=== PATIENT | female | born 1985 | race Caucasian/White ===

== ENCOUNTER 2021-02-11 08:40 | Outpatient (REF) | payer OTHER, SELFPAY ==
[2021-02-11 09:13] LABS: COVID-19 Test Negative (Negative)
== END 2021-02-11 08:41 | disposition home or self-care (01) ==
LOC: HO.LAB 08:40
PROVIDERS: Visit Provider Internal Medicine
DX: Z20.822 Contact with and (suspected) exposure to COVID-19 (principal)
CPT/HCPCS: 36415; 87635; C9803

== ENCOUNTER 2021-07-08 08:34 | Outpatient (REF) | payer OTHER, SELFPAY ==
[2021-07-08 09:31] LABS: COVID-19 Test Negative (Negative)
== END 2021-07-08 08:35 | disposition home or self-care (01) ==
LOC: HO.LAB 08:34
PROVIDERS: PCP Internal Medicine; Visit Provider Internal Medicine
DX: Z20.822 Contact with and (suspected) exposure to COVID-19 (principal)
CPT/HCPCS: 36415; 87635; C9803

== ENCOUNTER 2021-12-29 14:10 | Outpatient (REF) | payer OTHER, SELFPAY ==
[2021-12-29 17:57] LABS: CT PCR NOT DETECTED (Not Detect.); NG PCR NOT DETECTED (Not Detect.)
[2022-01-01 09:52] LABS: HPV mRNA E6/E7 rflx Not Detected (Not Detected)
== END 2021-12-29 14:11 | disposition home or self-care (01) ==
LOC: HO.LAB 14:10
PROVIDERS: PCP Internal Medicine; Visit Provider Advanced Practice Midwife
DX: Z01.419 Encounter for gynecological examination (general) (routine) without abnormal findings (principal); Z11.51 Encounter for screening for human papillomavirus (HPV); Z20.2 Contact with and (suspected) exposure to infections with a predominantly sexual mode of transmission
CPT/HCPCS: 87491; 87591; 87624; 88142

== ENCOUNTER 2022-09-19 11:54 | Outpatient (REF) | payer OTHER, SELFPAY ==
[2022-09-19 12:38] LABS: Influenza A PCR NEGATIVE (Negative); Influenza B PCR NEGATIVE (Negative); Resp Syncy Virus RNA Qual PCR POSITIVE (Negative); SARS COV2 PCR INHOUSE NEGATIVE (Negative)
== END 2022-09-19 11:55 | disposition home or self-care (01) ==
LOC: HO.LNP 11:54
PROVIDERS: Visit Provider Internal Medicine
DX: Z20.822 Contact with and (suspected) exposure to COVID-19 (principal); R43.9 Unspecified disturbances of smell and taste
CPT/HCPCS: 0241U

== ENCOUNTER 2022-11-26 09:06 | Outpatient (REF) | payer OTHER, SELFPAY ==
[2022-11-26 09:12] LABS: MANUAL DIFF FLAG NO
[2022-11-26 10:08] LABS: Basophils Absolute Auto 0.1 X10*3/uL (0.0-0.2); Basophils Percent Auto 0.7 % (0-2); Eosinophils Absolute Auto 0.4 X10*3/uL (0.0-0.4); Eosinophils Percent Auto 4.4 % (0-4); Hematocrit 40.8 % (37.0-47.0); Hemoglobin 13.5 g/dl (12.0-16.0); Imm Gran Abs Auto 0.02 X10*3/uL (0.00-0.03); Imm Gran Pct Auto 0.2 % (0.0-0.4); Lymphocytes Absolute Auto 2.7 X10*3/uL (1.2-4.9); Lymphocytes Percent Auto 30.4 % (20-40); Mean Corpuscular HGB Conc 33.1 g/dl (31.0-35.0); Mean Corpuscular Volume 81.6 fL (80.0-98.0); Mean Platelet Volume 9.9 fL (9.4-12.3); Monocytes Absolute Auto 0.5 X10*3/uL (0.1-1.2); Monocytes Percent Auto 5.9 % (2-11); Neutrophils Absolute Auto 5.2 x10*3/uL (2.0-8.3); Neutrophils Percent Auto 58.4 % (45-73); Platelet Count 409 X10*3/uL (160-400); White Blood Count 8.9 X10*3/uL (4.8-10.8)
[2022-11-26 10:13] LABS: Estimated Average Glucose 108 mg/dL; Hemoglobin A1c % 5.4 %
[2022-11-26 12:31] LABS: Alanine Aminotransferase 27 U/L (0-31); Albumin Level 4.6 g/dL (3.5-5.0); Alkaline Phosphatase 68 U/L (39-117); Anion Gap 16 (12-20); Aspartate Amino Transferase 18 U/L (5-31); Bilirubin Total 0.7 mg/dL (0.0-1.0); Blood Urea Nitrogen 14 mg/dL (9-16); Calcium 10.1 mg/dL (8.4-10.2); Carbon Dioxide 24 mmol/L (22-29); Chloride 106 mmol/L (96-108); Cholesterol 161 mg/dL; Estimated Glomerular Filt Rate > 60; Glucose Random 108 mg/dL (60-115); HDL Cholesterol 31 mg/dL; LDL Cholesterol Calculated 96 mg/dl; Potassium 4.4 mmol/L (3.3-5.1); Sodium 142 mmol/L (135-145); Triglycerides 170 mg/dL
[2022-11-26 13:04] LABS: Folate 8.1 ng/mL (> or = 4.0); Free T4 (Free Thyroxine) 0.92 ng/dL (0.71-1.85); Vitamin B12 417 pg/mL (200-900); Vitamin D 25-OH Total 22.3 ng/mL (>30)
== END 2022-11-26 09:07 | disposition home or self-care (01) ==
LOC: HO.LAB 09:06
PROVIDERS: PCP Internal Medicine; Visit Provider Internal Medicine
DX: E78.00 Pure hypercholesterolemia, unspecified (principal); E66.3 Overweight
CPT/HCPCS: 36415; 80053; 80061; 82306; 82607; 82746; 83036; 84439; 84443; 85025

== ENCOUNTER 2022-12-06 08:59 | Outpatient (REF) | payer OTHER, SELFPAY | END 2022-12-06 09:00 | disposition home or self-care (01) | LOC: HO.XRAY 08:59 | PROVIDERS: Absent Provider Internal Medicine; PCP Internal Medicine; Visit Provider Surgery | DX: Z13.89 Encounter for screening for other disorder (principal) ==

== ENCOUNTER 2022-12-12 09:54 | Outpatient (REF) | payer OTHER, SELFPAY ==
--- NOTE | ~2022-12-12 | XR_ITS ---
EXAMINATION: XR LUMBOSACRAL SPINE CLINICAL INFORMATION: Low back pain. COMPARISON: None TECHNIQUE: Three views of the lumbosacral spine. FINDINGS: The vertebral bodies and posterior elements are normal. The disc spaces are preserved and the vertebral alignment is normal. The paraspinal soft tissues are normal. XR/XR lumbar spine 2-3V IMPRESSION: Unremarkable examination.
--- NOTE | ~2022-12-12 | XR_ITS ---
EXAMINATION: XR KNEE AP STANDING CLINICAL INFORMATION: Pain in the right knee. COMPARISON: Prior radiographs of the left knee 05/23/2015. TECHNIQUE: AP bilateral standing view of the knees was obtained. FINDINGS: Small well-corticated 0.5 cm osseous fragment adjacent to the head of the left fibula. Mild joint space narrowing of the medial compartment in both knees. No significant bony productive changes. No erosions or chondrocalcinosis. No abnormal soft tissue calcifications. XR/XR knee standing BI IMPRESSION: 1. Nonspecific osseous fragment adjacent to the left fibular head potentially related with sequela of an avulsion injury, correlate with point tenderness. This is new compared to 2015. 2. Mild joint space narrowing of the medial prominence of both knees.
--- NOTE | ~2022-12-12 | US_ITS ---
EXAMINATION: US THYROID CLINICAL INFORMATION: Obesity, postprocedural state. COMPARISON: None TECHNIQUE: Linear transducer rosario-scale and color Doppler examination with attention to the region of the thyroid. FINDINGS: SIZE: Measurements of the thyroid lobes and nodules are given in sagittal, anteroposterior and transverse dimensions respectively. Right Thyroid Lobe: 5.3 x 1.6 x 1.4 cm, volume 6.2 mL. Parenchyma: The gland echotexture is homogeneous. Thyroid vascularity is normal. Left Thyroid Lobe: 5.0 x 1.2 x 1.4 cm, volume 4.4 mL. Parenchyma: The gland echotexture is homogeneous. Thyroid vascularity is normal. Isthmus: 0.4 cm in maximum AP dimension. No focal thyroid nodule is seen. Tiny colloid cysts are incidentally noted. NODES: No lymphadenopathy is seen in the tissue surrounding the thyroid gland. US/US thyroid IMPRESSION: Unremarkable examination. ACR TI-RADS RECOMMENDATION REFERENCE: Ultrasound-guided fine-needle aspiration, followup ultrasound, no further follow up. * TR1 (0 point) and TR2 (2 points): No FNA or follow up. * TR3 (3 points): FNA if more than or equal to 2.5 cm in maximum dimension, followup ultrasound in 1, 3 and 5 years if 1.5 to 2.4 cm in maximum dimension. * TR4 (4-6 points): FNA if more than or equal to 1.5 cm in maximum dimension, followup ultrasound in 1, 2, 3 and 5 years if 1 to 1.4 cm in maximum dimension. * TR5 (more than or equal to 7 points): FNA if more than or equal to 1 cm in maximum dimension, followup ultrasound every year for 5 years if 0.5 to 0.9 cm in maximum dimension. * TR3, TR4 or TR5 nodules that are below the size threshold for followup receive no follow up.
== END 2022-12-12 09:55 | disposition home or self-care (01) ==
LOC: HO.US 09:54
PROVIDERS: PCP Internal Medicine; Visit Provider Internal Medicine
DX: M54.50 Low back pain, unspecified (principal); M25.561 Pain in right knee; M25.562 Pain in left knee; Z98.890 Other specified postprocedural states
CPT/HCPCS: 72100; 73565; 76536

== ENCOUNTER 2022-12-23 12:43 | Outpatient (REF) | payer OTHER, SELFPAY | END 2022-12-23 12:44 | disposition home or self-care (01) | LOC: HO.HOSX 12:43 | PROVIDERS: Visit Provider Physician Assistant | DX: Z13.89 Encounter for screening for other disorder (principal) ==

== ENCOUNTER 2022-12-28 12:26 | Outpatient (REF) | payer OTHER, SELFPAY ==
--- NOTE | ~2022-12-28 | XR_ITS ---
EXAMINATION: XR CHEST CLINICAL INFORMATION: Cough COMPARISON: None TECHNIQUE: 2 views of the chest were obtained. FINDINGS: No significant abnormality is noted involving the heart, lungs, mediastinum, bony thorax or soft tissues. XR/XR chest 2V IMPRESSION: Unremarkable examination.
[2022-12-28 15:05] LABS: Influenza A PCR NEGATIVE (Negative); Influenza B PCR NEGATIVE (Negative); Resp Syncy Virus RNA Qual PCR NEGATIVE (Negative); SARS COV2 PCR INHOUSE NEGATIVE (Negative)
== END 2022-12-28 12:27 | disposition home or self-care (01) ==
LOC: HO.HMGCX 12:26
PROVIDERS: PCP Internal Medicine; Visit Provider Nurse Practitioner Family
DX: Z20.822 Contact with and (suspected) exposure to COVID-19 (principal); R05.9 Cough, unspecified
CPT/HCPCS: 0241U; 71046

== ENCOUNTER 2023-01-04 15:01 | Outpatient (REF) | payer OTHER, SELFPAY ==
--- NOTE | ~2023-01-04 | XR_ITS ---
EXAMINATION: XR CHEST CLINICAL INFORMATION: Bronchitis. COMPARISON: None available. TECHNIQUE: 2 views of the chest were obtained. FINDINGS: No significant abnormality is noted involving the heart, lungs, mediastinum, bony thorax or soft tissues. XR/XR chest 2V IMPRESSION: Unremarkable chest examination.
== END 2023-01-04 15:02 | disposition home or self-care (01) ==
LOC: HO.XRAY 15:01
PROVIDERS: PCP Internal Medicine; Visit Provider Physician Assistant
DX: J40 Bronchitis, not specified as acute or chronic (principal)
CPT/HCPCS: 71046

== ENCOUNTER 2023-01-14 13:07 | Outpatient (REF) | payer OTHER, SELFPAY ==
--- NOTE | ~2023-01-14 | XR_ITS ---
EXAMINATION: XR LUMBOSACRAL SPINE WITH OBLIQUES CLINICAL INFORMATION: Lifting injury. COMPARISON: Lumbar spine radiographs dated 12/12/2022. TECHNIQUE: AP, both oblique, and lateral views of the lumbar spine. Lateral view of the lumbosacral junction. FINDINGS: The vertebral bodies and posterior elements are normal. The disc spaces are preserved and the vertebral alignment is normal. The paraspinal soft tissues are normal. Surgical clips overlie the right upper quadrant. XR/XR lumbar spine 4V min IMPRESSION: Unremarkable lumbar spine.
== END 2023-01-14 13:08 | disposition home or self-care (01) ==
LOC: HO.HMGCX 13:07
PROVIDERS: PCP Internal Medicine; Visit Provider Physician Assistant
DX: M54.50 Low back pain, unspecified (principal); M79.605 Pain in left leg
CPT/HCPCS: 72110

== ENCOUNTER 2023-03-15 09:26 | Outpatient (REF) | payer OTHER, SELFPAY ==
[2023-03-15 14:44] LABS: CT PCR NOT DETECTED (Not Detect.); NG PCR NOT DETECTED (Not Detect.)
[2023-03-16 09:01] LABS: BV Int Neg Control Negative (Negative); BV Int Pos Control Positive (Positive)
== END 2023-03-15 09:27 | disposition home or self-care (01) ==
LOC: HO.LAB 09:26
PROVIDERS: PCP Internal Medicine; Visit Provider Advanced Practice Midwife
DX: N94.6 Dysmenorrhea, unspecified (principal); Z20.2 Contact with and (suspected) exposure to infections with a predominantly sexual mode of transmission
CPT/HCPCS: 0353U; 87480; 87510; 87660

== ENCOUNTER 2023-03-15 10:05 | Outpatient (REF) | payer OTHER, SELFPAY ==
[2023-03-17 02:29] LABS: HPV mRNA E6/E7 rflx Not Detected (Not Detected)
== END 2023-03-15 10:06 | disposition home or self-care (01) ==
LOC: HO.LNP 10:05
PROVIDERS: Visit Provider Advanced Practice Midwife
DX: Z01.419 Encounter for gynecological examination (general) (routine) without abnormal findings (principal); Z11.51 Encounter for screening for human papillomavirus (HPV)
CPT/HCPCS: 87624; 88142

== ENCOUNTER 2023-04-03 07:38 | Outpatient (REF) | payer OTHER, SELFPAY ==
--- NOTE | ~2023-04-03 | XR_ITS ---
EXAMINATION: Bilateral knee x-ray CLINICAL INFORMATION: Pain COMPARISON: None TECHNIQUE: Lateral and sunrise view of each knee FINDINGS: Right: Bone alignment is normal. No fracture or dislocation. Small osteophytes patellofemoral joint. Small osteophyte at the patellar tendon insertion. Question slight lateral tilt of the patella on the sunrise view. No joint effusion. Left: Bone alignment is normal. No fracture or dislocation. Small osteophytes at the patellofemoral joint. Slight lateral tilt of patella. Osteophytes at the quadriceps tendon and patellar tendon insertions. XR/XR knee RT 2V IMPRESSION: Mild degenerative changes.
--- NOTE | ~2023-04-03 | XR_ITS ---
EXAMINATION: Bilateral knee x-ray CLINICAL INFORMATION: Pain COMPARISON: None TECHNIQUE: Lateral and sunrise view of each knee FINDINGS: Right: Bone alignment is normal. No fracture or dislocation. Small osteophytes patellofemoral joint. Small osteophyte at the patellar tendon insertion. Question slight lateral tilt of the patella on the sunrise view. No joint effusion. Left: Bone alignment is normal. No fracture or dislocation. Small osteophytes at the patellofemoral joint. Slight lateral tilt of patella. Osteophytes at the quadriceps tendon and patellar tendon insertions. XR/XR knee LT 2V IMPRESSION: Mild degenerative changes.
--- NOTE | ~2023-04-03 | XR_ITS ---
EXAMINATION: XR BILATERAL HIPS WITH AP PELVIS CLINICAL INFORMATION: Low back and pelvic pain COMPARISON: None available. TECHNIQUE: AP view of the pelvis and 2 views of each hip were obtained. FINDINGS: Bone alignment is normal. No fracture or dislocation. There is mild bilateral hip arthritis with small osteophytes. Bones of the pelvis are normal. Soft tissues are normal. XR/XR hip BI w PEL1V IMPRESSION: Mild bilateral hip osteoarthritis.
== END 2023-04-03 07:39 | disposition home or self-care (01) ==
LOC: HO.XRAY 07:38
PROVIDERS: Absent Provider Physician Assistant; PCP Internal Medicine; Visit Provider Internal Medicine
DX: M54.50 Low back pain, unspecified (principal); M25.561 Pain in right knee; M25.562 Pain in left knee
CPT/HCPCS: 73521; 73560

== ENCOUNTER 2023-10-02 11:44 | Outpatient (AMB) | payer BC, SELFPAY ==
--- NOTE | 2023-10-02 11:45 | AM.OFFVISNUR ---
Intake Intake Visit Reasons: Flu Shot Allergies No Known Drug Allergies Allergy (Unknown, Verified 03/22/23 13:47) NONE Office Procedures Flu Questionnaire Does the patient have a severe egg allergy?: No Does the patient have severe life threatening allergies?: No Does the patient have a fever or illness today?: No Has the patient ever had Guillain-Menard Syndrome?: No Has the patient ever had any past reaction to a flu shot?: No Immunizations flu vacc [id number] 6mos up(PF) 60 mcg(15 mcgx4)/0.5 mL IM syringe Performing Provider: Ravinder Murillo MD [facility] Administered by: Dipti Gonsalez RN on 10/02/23 11:50 Dose Route Admin Location Dispensed Lot Number Expiration Date NDC Sausage Tier 0.5 mL IM Left Deltoid 0.5 mL [id number] 04/21/24 93231-719-42 [employer] VIS Given Date VIS Provided VIS Publication Date 10/02/23 Single Vaccine 21 Eligibility Eligibility Date Funding Source Not [facility] Eligible 10/02/23 Private Coding Assessment & Plan Assessment & Plan Orders: Orders Influenza [id number] Immunization Today Z23 - Encounter for immunization
== END 2023-10-02 11:51 | disposition home or self-care (01) ==
PROVIDERS: PCP Internal Medicine; Visit Provider Internal Medicine
DX: Z23 Encounter for immunization (principal)
CPT/HCPCS: 90471; 90686

== ENCOUNTER 2023-11-03 11:32 | Outpatient (AMB) | payer BC, SELFPAY ==
[2023-11-03 11:34] VITALS: BP 110/72; PULSE 75; O2SAT 92; BMI 28.4
--- NOTE | 2023-11-03 11:34 | A.OFFPC_ITS ---
Vital Signs 11/03/23 11:34 Height 5 ft 1 in Weight 150 lb 8 oz BMI 28.4 BP 110/72 Blood Pressure Location Lt brachial Position Sitting Pulse 75 Pulse Source Pulse Oximeter Pulse Oximetry (%) 92 Oxygen Delivery Method Room Air Intake Visit Reasons: Abdominal pain/Concern Transport Truck Driver Required: No Crib Pad Maker: Not Required per policy Accompanied by: Self / Same As Patient Allergies No Known Drug Allergies Allergy (Unknown, Verified 11/03/23 11:35) NONE Medication List - Last Reconciled 11/03/23 by Ravinder Murillo MD metronidazole 500 mg PO BID 7 days valacyclovir (Valtrex) 500 mg PO BID zolpidem 5 mg PO BEDTIME PRN Tobacco use date assessed: 11/03/23 Dental Screening Dental Screen Date: 11/03/23 Did you have a dental visit in the last 12 months?: Yes Did you have a dental problem in the last 6 months where you did not have access to dental care?: No Was dental information given to patient?: Patient has dentist HPI Abdominal pain/Concern HPI Details 38-year-old overweight female with a his tory of bilateral knee pain constipation coming in for follow-up last seen in February 2023. Review of the notes had hip x-rays showing bilateral hip osteoarthritis and with the knee showing mild degenerative changes. Last blood work in November 2022 showing impaired glucose tolerance. 2 weeks ago epigastric pain- vomiting, diarrhea- feels tired and L side abdominal heavy. stil loo formed stool now and ot constipation, urination odor, no menstruation , tubes tied already. 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 concern on insomnia PFSH Medical History (Updated 11/03/23 @ 11:54 by Ravinder Murillo MD) Inflammation of sacroiliac joint Bronchitis Sinus infection Cough Mass of skin of back History of abnormal cervical Pap smear Surgical History History of thyroid surgery History of cholecystectomy Hx of tubal ligation H/O abdominoplasty Hx of section Family History Father TIA (transient ischemic attack) Bipolar 1 disorder Mental health disorder Multiple sclerosis Maternal Grandfather Heart attack Son Asperger's disorder Social History Housing: Apartment Alcohol intake: current Alcohol intake frequency: holidays/special occasions only Alcohol type: wine Patient Tobacco Use Status: Never used Tobacco e-Cigarette/Vaping Use: Never Used service: No Current occupational status: employed Current occupation: [employer] Sexual orientation: Straight/Heterosexual Gender identity: Female Cognitive needs: No Hearing needs: No Vision needs: Yes Questionnaire PHQ-9 Over the last 2 weeks, how often have you been bothered by any of the following problems? 1. Little interest or pleasure in doing things: more than half the days 2. Feeling down, depressed, or hopeless: more than half the days 3. Trouble falling or staying asleep, or sleeping too much: nearly every day 4. Feeling tired or having little energy: nearly every day 5. Poor appetite or overeating: not at all 6. Feeling bad about yourself - or that you are a failure or have let yourself or your family down: not at all 7. Trouble concentrating on things, such as reading the newspaper or watching television: more than half the days 8. Moving or speaking so slowly that other people could have noticed. Or the op posite - being so fidgety or restless that you have been moving around a lot more than usual: not at all 9. Thoughts that you would be better off or of hurting yourself in some way: not at all Total score: 12 Depression Screening Interpretation: Positive Depression Screening Done: Yes Source: Developed by Drs. Souleymane Rodrigues, Aiyana Sabillon, Jerry Reza and colleagues, with an educational omega from [employer]. Thrive Questionnaire Date Thrive assessed: 11/03/23 I am a: Patient What is your living situation today?: I have a steady place to live Within the past 12 months, did the food you bought not last and you didn't have the money to get more?: Never true Within the past 12 months, did you worry whether your food would run out before you got money to buy more?: Never true Do you have trouble paying for medicines?: No Do you have trouble getting transportation to medical appointments?: No Do you have trouble paying your heating and electricity bill?: No Do you have trouble taking care of your child, family member or friend?: No Do you have trouble with day-to-day activities such as bathing, preparing meals, shopping, managing finances, etc.?: No Are you currently unemployed and looking for a job?: No Are you interested in more education?: No Please select the resources that you would like help with: None AUDIT C Alcohol Use Questionnaire (AUDIT-C) 1. How often do you have a drink containing alcohol?: 2-3 times a week 2. How many drinks containing alcohol do you have on a typical day when you are drinking?: 3 or 4 3. How often do you have six or more drinks on one occasion?: Less than monthly Total Score: 5 Score Reviewed/Action Taken: Yes (discussed health risks associated w/ alcohol use including cirrhosis, LF) CHELSEY-7 AMB Questionnaire CHELSEY-7 Date CHELSEY - 7 assessed: 11/03/23 Feeling nervous, anxious, or on edge: 0 = Not at all Not being able to stop or control worryin = Not at all Worrying too much about different things: 0 = Not at all Trouble relaxin = Not at all Being so restless that it is hard to sit still: 0 = Not at all Becoming easily annoyed or irritable: 0 = Not at all Feeling afraid as if something awful might happen: 0 = Not at all Total CHELSEY-7 score (0-4 normal; 5-9 mild; 10-14 moderate; 15-21 severe): 0 Source: Developed by Drs. Souleymane Rodrigues, Aiyana Sabillon, Jerry Reza and colleagues, with an educational omega from [employer]. Physical exam (Primary Care) Vital Signs: Last Vital Signs Pulse 75 11/03/23 11:34 BP 110/72 11/03/23 11:34 Pulse Ox 92 11/03/23 11:34 Oxygen Delivery Method Room Air 11/03/23 11:34 BMI result Body Mass Index 28.4 Tobacco/Smoking Status: Tobacco use Status Tobacco use date assessed 11/03/23 11/03/23 11:40 Patient Tobacco Use Status Never used Tobacco 11/03/23 11:40 e-Cigarette/Vaping Use Never Used 11/03/23 11:40 PHQ-9: PHQ-9 Score PHQ-9: Total score 12 11/03/23 11:46 Depression Screening Interpretation: Positive Thrive Assessment: Date of Thrive Assessment Date Thrive assessed 11/03/23 11/03/23 11:40 Const General: alert; No acute distress Eyes Conjunctivae: conjunctivae normal Resp Auscultation: clear to auscultation bilaterally Cardio Rate: regular rate Rhythm: regular rhythm GI Other: abdomen is soft mild tenderness on the umbilical and LLQ but no guarding and rebound Inspection: Yes normal to inspection Extrem General: Yes normal to inspection and No edema Results AMB Urinalysis, Automated UA Leukoctes 3 Giles/uL Last Edit by Melanie Nieto, [facility] on 11/03/23 12:01 UA Nitrite Negative Last Edit by Melanie Nieto, [facility] on 11/03/23 12:01 UA Urobilinogen 0.2 mg/dL Last Edit by Melanie Nieto, A on 11/03/23 12:01 UA Protein 15 mg/dL Last Edit by Melanie Nieto, [facility] on 11/03/23 12:01 UA pH 6.0 Last Edit by Melanie Nieto, [facility] on 11/03/23 12:01 UA Blood 0 Murali/uL Last Edit by Melanie Nieto, [facility] on 11/03/23 12:01 UA Specific Berkley 0 Last Edit by Melanie Nieto, [facility] on 11/03/23 12:01 UA Ketone Negative Last Edit by Melanie Nieto, [facility] on 11/03/23 12:01 UA Bilirubin 0 mg/dL Last Edit by Melanie Nieto, [facility] on 11/03/23 12:01 UA Glucose 0 mg/dL Last Edit by Melanie Nieto, [facility] on 11/03/23 12:01 Assessment and Plan Assessment & Plan (1) Osteoarthritis, hip, bilateral: Code(s): M16.0 - Bilateral primary osteoarthritis of hip Plan: Keep active lose the weight (2) Overweight (BMI 25.0-29.9): Code(s): E66.3 - Overweight Plan: Diet and exercise (3) Impaired glucose tolerance: Code(s): R73.02 - Impaired glucose tolerance (oral) Plan: Decrease the amount of carbohydrate intake, pasta, bread, rice and potatoes are all sugar and that is aside from all the sweet stuff, remember that fruits are good but they are Sweet also. (4) LLQ abdominal pain: Code(s): R10.32 - Left lower quadrant pain Plan: us pelvis requested as well as xray abdomen (5) Insomnia: Code(s): G47.00 - Insomnia, unspecified Plan: sleep medicine prescribed Orders: Orders Thyroid Stimulating Hormone Today R73.02 - Impaired glucose tolerance (oral) Lipid Panel Today E78.00 - Pure hypercholesterolemia, unspecified, R73.02 - Impaired glucose tolerance (oral) Vitamin B12 and Folate Today R73.02 - Impaired glucose tolerance (oral) AMB HCG Urine Test Today R10.32 - Left lower quadrant pain XR abdomen 3V Today R10.32 - Left lower quadrant pain Complete Blood Count Auto Diff Today R73.02 - Impaired glucose tolerance (oral) Comprehensive Met. Panel Today R73.02 - Impaired glucose tolerance (oral) Free T4 (Free Thyroxine) Today R73.02 - Impaired glucose tolerance (oral) Hemoglobin A1c Today R73.02 - Impaired glucose tolerance (oral) AMB Urinalysis Automated Today R10.32 - Left lower quadrant pain, Z13.9 - Encounter for screening, unspecified US pelvic complete Today R10.32 - Left lower quadrant pain Medications: Refilled zolpidem 5 mg PO BEDTIME PRN 14 tabs 0RF sleep G47.00 - Insomnia, unspecified Coding Level of Care Code Est Pt Level 4 (64069) Diagnoses Osteoarthritis, hip, bilateral M16.0 Overweight (BMI 25.0-29.9) E66.3 Impaired glucose tolerance R73.02 LLQ abdominal pain R10.32 Insomnia G47.00
== END 2023-11-03 11:54 | disposition home or self-care (01) ==
PROVIDERS: PCP Internal Medicine; Visit Provider Internal Medicine
DX: M16.0 Bilateral primary osteoarthritis of hip (principal); E66.3 Overweight; R73.02 Impaired glucose tolerance (oral); R10.32 Left lower quadrant pain; G47.00 Insomnia, unspecified
CPT/HCPCS: 81003; 81025; 99214

== ENCOUNTER 2023-11-27 16:41 | Outpatient (AMB) | payer BC, SELFPAY ==
[2023-11-27 16:42] VITALS: BP 132/80; PULSE 70; O2SAT 98; BMI 28.7
--- NOTE | 2023-11-27 16:42 | MHC.PC.OV ---
Vital Signs 11/27/23 16:42 Height 5 ft 1 in Weight 152 lb BMI 28.7 BP 132/80 Blood Pressure Location Lt brachial Position Sitting Pulse 70 Pulse Source Pulse Oximeter Pulse Oximetry (%) 98 Oxygen Delivery Method Room Air Intake Visit Reasons: Follow Up Musculoskeletal Physician Required: No Sock Lining Stitcher: Not Required per policy Accompanied by: Self / Same As Patient Allergies No Known Drug Allergies Allergy (Unknown, Verified 11/27/23 16:42) NONE Tobacco use date assessed: 11/03/23 Dental Screening Dental Screen Date: 11/27/23 Did you have a dental visit in the last 12 months?: Yes Did you have a dental problem in the last 6 months where you did not have access to dental care?: No Was dental information given to patient?: Patient has dentist HPI Follow Up HPI Details 38-year-old overweight female with bilateral hip osteoarthritis impaired glucose tolerance and left lower quadrant pain ultrasound was requested patient was last seen in November 03. Had a urine tested which shows positive for UTI and was treated for UTI with Bactrim. Patient comes in not any better does know having constipation and when she pushes it she questions about vaginal bleeding. Discussed that with constipation that it is going to be hemorrhoids not vaginal bleeding so will send in for some laxatives and if the bleeding persist will have to have gynecology to examined. Meanwhile advised to get blood work done and retest of the urine requested. [facility] Medical History (Updated 11/27/23 @ 17:10 by Ravinder Murillo MD) Inflammation of sacroiliac joint Bronchitis Sinus infection Cough Mass of skin of back History of abnormal cervical Pap smear Surgical History History of thyroid surgery History of cholecystectomy Hx of tubal ligation H/O abdominoplasty Hx of section Family History Father TIA (transient ischemic attack) Bipolar 1 disorder Mental health disorder Multiple sclerosis Maternal Grandfather Heart attack Son Asperger's disorder Social History Housing: Apartment Alcohol intake: current Alcohol intake frequency: holidays/special occasions only Alcohol type: wine Patient Tobacco Use Status: Never used Tobacco e-Cigarette/Vaping Use: Never Used service: No Current occupational status: employed Current occupation: [employer] Sexual orientation: Straight/Heterosexual Gender identity: Female Cognitive needs: No Hearing needs: No Vision needs: Yes Questionnaire Thrive Questionnaire Date Thrive assessed: 11/03/23 CHELSEY-7 AMB Questionnaire CHELSEY-7 Date CHELSEY - 7 assessed: 11/03/23 Source: Developed by Drs. Souleymane Rodrigues, Aiyana Sabillon, Jerry Reza and colleagues, with an educational omega from [employer]. Physical exam (Primary Care) Vital Signs: Last Vital Signs Pulse 70 11/27/23 16:42 BP 132/80 11/27/23 16:42 Pulse Ox 98 11/27/23 16:42 Oxygen Delivery Method Room Air 11/27/23 16:42 BMI result Body Mass Index 28.7 Tobacco/Smoking Status: Tobacco use Status Tobacco use date assessed 11/03/23 11/27/23 16:43 Patient Tobacco Use Status Never used Tobacco 11/27/23 16:43 e-Cigarette/Vaping Use Never Used 11/27/23 16:43 Thrive Assessment: Date of Thrive Assessment Date Thrive assessed 11/03/23 11/27/23 16:43 Const General: alert; No acute distress Eyes Conjunctivae: conjunctivae normal Resp Auscultation: clear to auscultation bilaterally Cardio Rate: regular rate Rhythm: regular rhythm GI Other: Vague left lower quadrant pain but no guarding no rebound. Extrem General: Yes normal to inspection and No edema Assessment and Plan Assessment & Plan (1) Overweight (BMI 25.0-29.9): Code(s): E66.3 - Overweight Plan: Diet and exercise (2) Impaired glucose tolerance: Code(s): R73.02 - Impaired glucose tolerance (oral) Plan: blood work requested (3) LLQ abdominal pain: Code(s): R10.32 - Left lower quadrant pain Plan: concern on constipation (4) Vitamin D deficiency: Code(s): E55.9 - Vitamin D deficiency, unspecified Plan: blood work pending (5) Constipation: Code(s): K59.00 - Constipation, unspecified Orders: Orders UA w Microscopic Today K59.00 - Constipation, unspecified Medications: New sennosides-docusate sodium 8.6-50 mg (Senna Plus) 2 tab-caps (2 x 8.6-50 mg) PO BEDTIME 30 days 60 tabs 2RF K59.00 - Constipation, unspecified Discontinued sulfamethoxazole-trimethoprim 800-160 mg (Bactrim DS) Discontinued Reason: Patient Completed Course 1 tab PO BID 14 tabs 0RF R10.32 - Left lower quadrant pain Coding Level of Care Code Est Pt Level 4 (50482) Diagnoses Overweight (BMI 25.0-29.9) E66.3 Impaired glucose tolerance R73.02 LLQ abdominal pain R10.32 Vitamin D deficiency E55.9 Constipation K59.00
== END 2023-11-27 17:21 | disposition home or self-care (01) ==
PROVIDERS: PCP Internal Medicine; Visit Provider Internal Medicine
DX: E66.3 Overweight (principal); R73.02 Impaired glucose tolerance (oral); R10.32 Left lower quadrant pain; E55.9 Vitamin D deficiency, unspecified; K59.00 Constipation, unspecified
CPT/HCPCS: 99214

== ENCOUNTER 2023-11-28 07:57 | Outpatient (REF) | payer BC, SELFPAY ==
[2023-11-28 08:16] LABS: MANUAL DIFF FLAG NO
[2023-11-28 08:38] LABS: Basophils Absolute Auto 0.1 X10*3/uL (0.0-0.2); Basophils Percent Auto 0.8 % (0-2); Eosinophils Absolute Auto 0.3 X10*3/uL (0.0-0.4); Eosinophils Percent Auto 3.8 % (0-4); Imm Gran Abs Auto 0.02 X10*3/uL (0.00-0.03); Imm Gran Pct Auto 0.2 % (0.0-0.4); Lymphocytes Absolute Auto 2.1 X10*3/uL (1.2-4.9); Lymphocytes Percent Auto 25.3 % (20-40); Mean Corpuscular HGB Conc 35.1 g/dl (31.0-35.0); Mean Corpuscular Hemoglobin 27.5 pg (27.0-33.0); Mean Corpuscular Volume 78.4 fL (80.0-98.0); Mean Platelet Volume 9.7 fL (9.4-12.3); Monocytes Absolute Auto 0.5 X10*3/uL (0.1-1.2); Monocytes Percent Auto 5.7 % (2-11); Neutrophils Absolute Auto 5.4 x10*3/uL (2.0-8.3); Neutrophils Percent Auto 64.2 % (45-73); Platelet Count 338 X10*3/uL (160-400); Red Blood Count 4.72 X10*6/uL (4.20-5.50); Red Cell Distribution Width 13.5 % (11.0-16.0); White Blood Count 8.5 X10*3/uL (4.8-10.8)
[2023-11-28 08:46] LABS: Estimated Average Glucose 100 mg/dL; Hemoglobin A1c % 5.1 % (<6.0)
[2023-11-28 09:16] LABS: Alanine Aminotransferase 41 U/L (0-31); Albumin Level 4.5 g/dL (3.5-5.0); Alkaline Phosphatase 74 U/L (39-117); Anion Gap 12 (12-20); Aspartate Amino Transferase 21 U/L (5-31); Bilirubin Total 0.7 mg/dL (0.0-1.0); Blood Urea Nitrogen 12 mg/dL (9-16); Calcium 9.9 mg/dL (8.4-10.2); Carbon Dioxide 26 mmol/L (22-29); Chloride 105 mmol/L (96-108); Cholesterol 159 mg/dL (<200); Estimated Glomerular Filt Rate > 60; Glucose Random 108 mg/dL (60-115); HDL Cholesterol 33 mg/dL (>40); LDL Cholesterol Calculated 104 mg/dL (<100); Potassium 3.9 mmol/L (3.3-5.1); Sodium 139 mmol/L (135-145); Total Protein 8.2 g/dL (6.5-8.0); Triglycerides 110 mg/dL (<150)
[2023-11-28 09:33] LABS: Free T4 (Free Thyroxine) 0.89 ng/dL (0.71-1.85); Thyroid Stimulating Hormone 1.87 uIU/mL (0.32-4.0)
[2023-11-28 09:38] LABS: Vitamin B12 499 pg/mL (200-900)
[2023-11-28 10:58] LABS: Appearance Urine Clear; Color Urine Yellow; Glucose Urine UA Negative (Negative); Leukocyte Esterase Urine Small (1+) (Negative); Nitrite Urine Negative (Negative); UMIC TRIGGER UA YES; Urine Blood Negative (Negative); Urine Ketones Negative (Negative); Urine Protein 30 (1+) mg/dL (Neg-Trace)
[2023-11-28 11:04] LABS: Bacteria Urine 1+ (None Seen); Hyaline Casts Urine 0-2 /LPF (0-2); RBC Urine 0-2 /HPF (0-2)
== END 2023-11-28 07:58 | disposition home or self-care (01) ==
LOC: HO.LAB 07:57
PROVIDERS: PCP Internal Medicine; Visit Provider Internal Medicine
DX: E78.00 Pure hypercholesterolemia, unspecified (principal); R73.02 Impaired glucose tolerance (oral); K59.00 Constipation, unspecified
CPT/HCPCS: 36415; 80053; 80061; 81001; 82607; 82746; 83036; 84439; 84443; 85025

== ENCOUNTER 2023-12-08 08:37 | Outpatient (REF) | payer BC, SELFPAY ==
[2023-12-08 09:51] LABS: Alanine Aminotransferase 35 U/L (0-31); Albumin Level 4.3 g/dL (3.5-5.0); Alkaline Phosphatase 69 U/L (39-117); Anion Gap 11 (12-20); Aspartate Amino Transferase 26 U/L (5-31); Bilirubin Total 0.9 mg/dL (0.0-1.0); Blood Urea Nitrogen 10 mg/dL (9-16); Calcium 9.5 mg/dL (8.4-10.2); Carbon Dioxide 27 mmol/L (22-29); Chloride 107 mmol/L (96-108); Estimated Glomerular Filt Rate > 60; Glucose Random 96 mg/dL (60-115); Potassium 4.2 mmol/L (3.3-5.1); Sodium 141 mmol/L (135-145); Total Protein 7.8 g/dL (6.5-8.0)
[2023-12-08 10:15] LABS: HBS Num1 129.45 mIU/mL (0-7.99); HBc Num1 0.08 S/CO (0.00-0.79); HBsAGNum1 0.34 S/CO (0.00-0.99); Hepatitis B Core Antibody Nonreactive (Nonreactive); Hepatitis B Surface Antigen Negative (Negative); ~HepC Num1 0.06 S/CO (0.00-0.79); ~Hepatitis B Surface Antibody REACTIVE (Nonreactive); ~Hepatitis C Antibody Nonreactive (Nonreactive)
== END 2023-12-08 08:38 | disposition home or self-care (01) ==
LOC: HO.LAB 08:37
PROVIDERS: PCP Internal Medicine; Visit Provider Internal Medicine
DX: R79.89 Other specified abnormal findings of blood chemistry (principal)
CPT/HCPCS: 36415; 80053; 86704; 86706; 86803; 87340

== ENCOUNTER 2023-12-22 08:24 | Outpatient (REF) | payer BC, SELFPAY ==
--- NOTE | ~2023-12-22 | US_ITS ---
EXAMINATION: US ABDOMEN COMPLETE CLINICAL INFORMATION: Other specified abnormal findings of blood chemistry. COMPARISON: None available. TECHNIQUE: Real-time imaging of the abdominal viscera. Limited visualization due to bowel gas. FINDINGS: PANCREAS: Limited visualization of pancreatic tail and head. Imaged portion of pancreatic body is unremarkable. ABDOMINAL AORTA: Unremarkable. INFERIOR VENA CAVA: Visualized portions are normal. LIVER: Increased hepatic parenchymal heterogeneity and echogenicity could be associated with hepatocellular disease/hepatic steatosis and substantially limits visualization. Correlation with liver function tests and clinical exam recommended to determine further management. GALLBLADDER: Surgically absent. COMMON BILE DUCT: Normal in caliber measuring 0.6 cm in diameter. RIGHT KIDNEY: Mid pole 1.2 x 1.4 x 0.9 cm cyst. There is no indication for follow-up imaging. Limited visualization. No hydronephrosis or renal calculi. The kidney measures 10.5 cm in maximum dimension. LEFT KIDNEY: No hydronephrosis. No renal calculi. Limited visualization. The kidney measures 10.7 cm in maximum dimension. SPLEEN: Normal. The spleen measures 11.3 cm in maximum dimension. FREE FLUID: None. US/US abdomen complete IMPRESSION: 1. Increased hepatic parenchymal heterogeneity and echogenicity could be associated with hepatocellular disease/hepatic steatosis and substantially limits visualization. Correlation with liver function tests and clinical exam recommended to determine further management. 2. Gallbladder surgically absent.
== END 2023-12-22 08:25 | disposition home or self-care (01) ==
LOC: HO.US 08:24
PROVIDERS: PCP Internal Medicine; Visit Provider Internal Medicine
DX: R79.89 Other specified abnormal findings of blood chemistry (principal)
CPT/HCPCS: 76700

== ENCOUNTER 2024-01-08 10:54 | Outpatient (AMB) | payer BC, SELFPAY ==
[2024-01-08 11:46] VITALS: BP 110/72; PULSE 86; TEMP 36.3; O2SAT 98; BMI 28.9
--- NOTE | 2024-01-08 11:46 | AM.OFFWIN_ITS ---
Intake Vital Signs 01/08/24 11:46 Height 5 ft 1 in Weight 153 lb BMI 28.9 BP 110/72 Pulse 86 Pulse Source Pulse Oximeter Temp 97.4 F Temp Source Temporal Artery Scan Pulse Oximetry (%) 98 Oxygen Delivery Method Room Air Intake Visit Reasons: EP Lump in throat Intake Note: pt is here today for lump in throat started Patient Tobacco Use Status: Never used Tobacco Allergies No Known Drug Allergies Allergy (Unknown, Verified 01/08/24 11:51) NONE Do you need a note to return to daycare/school/sports/work: No HPI HPI Comments History of Present Illness Details This is a 38-year-old female with no stated past medical history presenting for evaluation of a dry cough and a ?lump? in her throat that she 1st noticed on Monday. She is also complaining of intermittent right ear pain and a sore throat. Patient has no ear pain at this time. Patient has been taking DayQuil and NyQuil without relief of her symptoms. Patient states that her children have also had similar symptoms. Patient has not missed any work and does not require a note for missed days. [facility] Medical History LFT elevation Inflammation of sacroiliac joint Bronchitis Sinus infection Cough Mass of skin of back History of abnormal cervical Pap smear Surgical History History of thyroid surgery History of cholecystectomy Hx of tubal ligation H/O abdominoplasty Hx of section Family History Father TIA (transient ischemic attack) Bipolar 1 disorder Mental health disorder Multiple sclerosis Maternal Grandfather Heart attack Son Asperger's disorder Social History Housing: Apartment Alcohol intake: current Alcohol intake frequency: holidays/special occasions only Alcohol type: wine Patient Tobacco Use Status: Never used Tobacco e-Cigarette/Vaping Use: Never Used service: No Current occupational status: employed Current occupation: [employer] Sexual orientation: Straight/Heterosexual Gender identity: Female Cognitive needs: No Hearing needs: No Vision needs: Yes Physical Exam Vital Signs: Last Vital Signs Temp 97.4 F 03/18/24 11:46 Pulse 86 01/08/24 11:46 BP 110/72 01/08/24 11:46 Pulse Ox 98 01/08/24 11:46 Oxygen Delivery Method Room Air 01/08/24 11:46 BMI result Body Mass Index 28.9 Patient is afebrile Const General: cooperative, healthy appearing, comfortable, no acute distress, alert and awake; No lethargic Nutritional Appearance: average body habitus Orientation/consciousness: patient oriented x3 and No lethargic Limitations: no limitations HEENT Head: Yes normal to inspection and Yes normocephalic Ears: hearing grossly normal bilaterally, external ears normal, TM's normal bilaterally and EAC's normal General nose exam: Normal external nose present Face and sinus: Yes normal facial exam Mouth: Normal oral and palatal mucosa present and moist mucous membranes Throat: Yes posterior oropharynx normal (There is no edema, erythema or exudates of the posterior oropharynx.) and No postnasal drainage Eyes General: appearance normal, both eyes and all related structures Alignment and Position: alignment normal Conjunctivae: conjunctivae normal Sclerae: sclerae normal Pupils: Equal, round and reactive pupils present EOM: EOMs intact bilaterally Neck Lymphatic: no lymphadenopathy noted Resp Effort & Inspection: normal respiratory effort, able to speak in complete sentences, no audible wheezes and no cough Auscultation: clear to auscultation bilaterally Cardio Rate: regular rate Rhythm: regular rhythm Skin General skin exam: no rashes or lesions noted Neuro General: patient oriented x3 Cranial nerves: Yes Equal, round and reactive pupils present Psych Appearance: grossly normal Mental Status: mental status grossly normal Insight: Good insight present (Psych) Judgement: Good judgement present (Psych) Results AMB Rapid Strep AMB Rapid Strep Negative Last Edit by Idalmis Orellana on 01/08/24 12:37 Results Reviewed Results Reviewed: Rapid Strep test is negative. Assessment & Plan Assessment & Plan (1) Acute pharyngitis: Comment: Rapid strep negative; no clinical evidence of a bacterial pharyngitis. Code(s): J02.9 - Acute pharyngitis, unspecified Qualifiers: Pharyngitis/tonsillitis etiology: unspecified etiology Qualified Code(s): J02.9 - Acute pharyngitis, unspecified Plan: Ibuprofen or Tylenol as needed; follow-up with primary care provider in 7-10 days if symptoms persist. (2) Otalgia of right ear: Code(s): H92.01 - Otalgia, right ear Plan: Tylenol or ibuprofen as needed; no evidence of an otitis media or otitis externa. Coding Level of Care Code Est Pt Level 3 (66675) Diagnoses Acute pharyngitis, unspecified etiology J02.9 Pharyngitis/tonsillitis etiology: unspecified etiology Otalgia of right ear H92.01 Time Spent (min) 20
== END 2024-01-08 12:48 | disposition home or self-care (01) ==
PROVIDERS: PCP Internal Medicine; Visit Provider Physician Assistant
DX: J02.9 Acute pharyngitis, unspecified (principal); H92.01 Otalgia, right ear
CPT/HCPCS: 87880; 99213

== ENCOUNTER 2024-03-22 16:15 | Outpatient (AMB) | payer BC, SELFPAY ==
--- NOTE | 2024-03-22 16:15 | MHC.PC.OV ---
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: No Allergies No Known Drug Allergies Allergy (Unknown, Verified 03/22/24 16:16) NONE Medication List - Last Reconciled 03/22/24 by Ravinder Murillo MD cholecalciferol (vitamin D3) 25 mcg PO DAILY omega 4-yyh-jal-fish oil 60-90-500 mg (Fish Oil) 1 cap PO DAILY Tobacco use date assessed: 03/22/24 Dental Screening Dental Screen Date: 03/22/24 Did you have a dental visit in the last 12 months?: No Did you have a dental problem in the last 6 months where you did not have access to dental care?: No HPI pe HPI Details 38-year-old overweight female with impaired glucose tolerance coming in for physical exam last seen in 12/12/2023 urgent care visit 01/10/2024 for pharyngitis noted abdominal ultrasound done in December showing hepatic steatosis getting dizzy - fell - 1 months ago eye exam negative recentlu, , states chocking in the middle of the night, , no sleepy occ sleepy while driving, . heart burn. Patient also has been complaining of headaches and with the family history of multiple sclerosis would like to have a neurology referral. Patient would like to have that referral in [facility]. [facility] Medical History LFT elevation Inflammation of sacroiliac joint Bronchitis Sinus infection Cough Mass of skin of back History of abnormal cervical Pap smear Surgical History History of thyroid surgery History of cholecystectomy Hx of tubal ligation H/O abdominoplasty Hx of section Family History Father TIA (transient ischemic attack) Bipolar 1 disorder Mental health disorder Multiple sclerosis Maternal Grandfather Heart attack Son Asperger's disorder Social History (Updated 03/22/24 @ 16:53 by Ravinder Murillo MD) Housing: Apartment Alcohol intake: current Alcohol intake frequency: holidays/special occasions only Alcohol type: wine Comment: glass of wine QD Patient Tobacco Use Status: Never used Tobacco e-Cigarette/Vaping Use: Never Used service: No Current occupational status: employed Current occupation: [employer] Sexual orientation: Straight/Heterosexual Gender identity: Female Cognitive needs: No Hearing needs: No Vision needs: Yes Questionnaire PHQ-9 Over the last 2 weeks, how often have you been bothered by any of the following problems? 1. Little interest or pleasure in doing things: not at all 2. Feeling down, depressed, or hopeless: not at all 3. Trouble falling or staying asleep, or sleeping too much: not at all 4. Feeling tired or having little energy: not at all 5. Poor appetite or overeating: not at all 6. Feeling bad about yourself - or that you are a failure or have let yourself or your family down: not at all 7. Trouble concentrating on things, such as reading the newspaper or watching television: not at all 8. Moving or speaking so slowly that other people could have noticed. Or the opposite - being so fidgety or restless that you have been moving around a lot more than usual: not at all 9. Thoughts that you would be better off or of hurting yourself in some way: not at all Total score: 0 Depression Screening Interpretation: Negative Depression Screening Done: Yes 75648 - PHQ-9 Billing: Yes Source: Developed by Drs. Souleymane Rodrigues, Aiyana Sabillon, Jerry Reza and colleagues, with an educational omega from [employer]. Thrive Questionnaire Date Thrive assessed: 03/22/24 I am a: Patient What is your living situation today?: I have a steady place to live Within the past 12 months, did the food you bought not last and you didn't have the money to get more?: Never true Within the past 12 months, did you worry whether your food would run out before you got money to buy more?: Never true Do you have trouble paying for medicines?: No Do you have trouble getting transportation to medical appointments?: No Do you have trouble paying your heating and electricity bill?: No Do you have trouble taking care of your child, family member or friend?: No Do you have trouble with day-to-day activities such as bathing, preparing meals, shopping, managing finances, etc.?: No Are you currently unemployed and looking for a job?: No Are you interested in more education?: No Please select the resources that you would like help with: None Currently or been in a relationship where the following occur: no concerns reported THRIVE Score: 0 AUDIT C Alcohol Use Questionnaire (AUDIT-C) 1. How often do you have a drink containing alcohol?: 2-3 times a week 2. How many drinks containing alcohol do you have on a typical day when you are drinking?: 3 or 4 3. How often do you have six or more drinks on one occasion?: Less than monthly Total Score: 5 Score Reviewed/Action Taken: Yes (discussed health risks associated w/ alcohol use including cirrhosis, LF) CHELSEY-7 AMB Questionnaire CHELSEY-7 Date CHELSEY - 7 assessed: 03/22/24 Feeling nervous, anxious, or on edge: 0 = Not at all Not being able to stop or control worryin = Not at all Worrying too much about different things: 0 = Not at all Trouble relaxin = Not at all Being so restless that it is hard to sit still: 0 = Not at all Becoming easily annoyed or irritable: 0 = Not at all Feeling afraid as if something awful might happen: 0 = Not at all Total CHELSEY-7 score (0-4 normal; 5-9 mild; 10-14 moderate; 15-21 severe): 0 Source: Developed by Drs. Souleymane Rodrigues, Aiyana Sabillon, Jerry Reza and colleagues, with an educational omega from [employer]. CHELSEY-7 Assessment Billing CHELSEY-7 Assessment Tool: CHELSEY-7 Assessment 44253 Review of Systems Const Denies poor appetite and Denies weakness Eyes Denies no additional complaints ENT Reports Normal hearing present, Denies dizziness, Denies nasal congestion, Denies tinnitus and Denies sore throat Card Denies chest pain, Denies syncope, Denies rapid heart rate and Denies dyspnea Resp Denies cough and Denies dyspnea GI Denies change in stool character, Reports constipation, Denies diarrhea, Denies nausea and Denies vomiting Denies urinary frequency, Denies difficulty voiding and Denies dysuria Neuro Reports Normal hearing present, Denies confusion, Denies dizziness, Denies syncope and Denies weakness Psych Denies confusion Physical exam (Primary Care) Vital Signs: Last Vital Signs Pulse 77 03/22/24 16:16 BP 110/82 03/22/24 16:16 Pulse Ox 98 03/22/24 16:16 Oxygen Delivery Method Room Air 03/22/24 16:16 BMI result Body Mass Index 28.9 Tobacco/Smoking Status: Tobacco use Status Tobacco use date assessed 03/22/24 03/22/24 16:17 Patient Tobacco Use Status Never used Tobacco 03/22/24 16:53 e-Cigarette/Vaping Use Never Used 03/22/24 16:53 PHQ-9: PHQ-9 Score PHQ-9: Total score 0 03/22/24 17:15 Depression Screening Interpretation: Negative Thrive Assessment: Date of Thrive Assessment Date Thrive assessed 03/22/24 03/22/24 16:17 Currently or been in a relationship where the following occur: no concerns reported Const General: No confusion Orientation/consciousness: No confusion HENMT Head: Yes normocephalic Ears: external ears normal and TM's normal bilaterally Face and sinus: Yes normal facial exam Mouth: moist mucous membranes Throat: Yes tonsils normal Eyes Conjunctivae: conjunctivae normal Pupils: Equal, round and reactive pupils present and Pupil accommodation reflex normal Direct Ophthalmoscopy: normal light reflex Neck Neck: No lymphadenopathy Thyroid: Thyroid normal Chest Chest palpation & inspection: normal inspection of the chest Resp Effort & Inspection: normal respiratory effort and no audible wheezes Auscultation: clear to auscultation bilaterally, no crackles, no wheezes and lung sounds not diminished Cardio Rate: regular rate Rhythm: regular rhythm Peripheral pulses: radial pulses present and dorsalis pedis present GI Palpation (GI): no masses Auscultation: normal bowel sounds and normoactive bowel sounds Rectal Exam - Female: deferred Skin General skin exam: no rashes or lesions noted Rashes: no rashes Neuro General: No confusion Cranial nerves: Yes Equal, round and reactive pupils present and Yes Normal hearing present Cognition (Neuro): normal cognition Gait exam (Neuro): Normal gait present Motor exam (neuro): 5/5 motor strength present throughout Deep tendon reflexes (DTR's): Right brachioradialis reflex intensity grade: 2+, Left brachioradialis reflex intensity grade: 2+, Right patellar reflex intensity grade: 2+ and Left patellar reflex intensity grade: 2+ Extrem General: No edema Results AMB Urinalysis, Automated UA Leukoctes 70 Giles/uL Last Edit by Alfreda Nixon [facility] on 03/22/24 17:17 UA Nitrite Negative Last Edit by Alfreda Nixon, [facility] on 03/22/24 17:17 UA Urobilinogen 0.2 mg/dL Last Edit by Alfreda Nixon, [facility] on 03/22/24 17:17 UA Protein 30 mg/dL Last Edit by Alfreda Nixon, [facility] on 03/22/24 17:17 UA pH 6.0 Last Edit by Alfreda Nixon, [facility] on 03/22/24 17:17 UA Blood 0 Murali/uL Last Edit by Alfreda Nixon, [facility] on 03/22/24 17:17 UA Specific [place] 1.020 Last Edit by Alfreda Nixon, [facility] on 03/22/24 17:17 UA Ketone Negative Last Edit by Alfreda Nixon, [facility] on 03/22/24 17:17 UA Bilirubin 0 mg/dL Last Edit by Alfreda Nixon, [facility] on 03/22/24 17:17 UA Glucose 0 mg/dL Last Edit by Alfreda Nixon, [facility] on 03/22/24 17:17 Results Reviewed Results Reviewed: Laboratory Last Values Urine pH (Auto) 6.0 03/22/24 17:15 Specific [place] (Auto) 1.020 03/22/24 17:15 Urine Protein (Auto) 30 mg/dL 03/22/24 17:15 Glucose (UA)(Auto) 0 mg/dL 03/22/24 17:15 Urine Ketones (Auto) Negative 03/22/24 17:15 Urine Blood (Auto) 0 Murali/uL 03/22/24 17:15 Urine Nitrite (Auto) Negative 03/22/24 17:15 Urine Bilirubin (Auto) 0 mg/dL 03/22/24 17:15 Urine Urobilinogen (Auto) 0.2 mg/dL 03/22/24 17:15 Leukocyte Esterase (Auto) 70 Giles/uL 03/22/24 17:15 Assessment and Plan Assessment & Plan (1) Annual physical exam: Code(s): Z00.00 - Encounter for general adult medical examination without abnormal findings Plan: Patient is advised to eat healthy, keep well hydrated, keep active and have adequate sleep. (2) Overweight (BMI 25.0-29.9): Code(s): E66.3 - Overweight Plan: Diet and exercise (3) Fatty liver: Comment: Ultrasound December 2023 Code(s): K76.0 - Fatty (change of) liver, not elsewhere classified Plan: Low-fat diet and exercise (4) Microcytosis: Code(s): R71.8 - Other abnormality of red blood cells Plan: Will continue to monitor as the patient has no anemia. (5) GERD (gastroesophageal reflux disease): Code(s): K21.9 - Gastro-esophageal reflux disease without esophagitis Plan: Avoid the foods that causes that usually spicy foods, tomato products, juices, coffee, soda and foods that your sensitive to. After eating do not lie down, allow 3-4 hours before in lie down. And keep the head of bed above 30 degrees to avoid the acid from going up. (6) Constipation: Code(s): K59.00 - Constipation, unspecified Plan: Three rules for constipation 1. Diet need to have a high fiber diet less of meat 2. Increase oral fluids 3. Exercise (7) Dysuria: Code(s): R30.0 - Dysuria Plan: Will request for urinalysis (8) Insomnia: Code(s): G47.00 - Insomnia, unspecified Plan: Zolpidem refill done (9) Head ache: Code(s): R51.9 - Headache, unspecified Plan: Patient would like to have referral to neurology Orders: Orders AMB Urinalysis Automated Today R30.0 - Dysuria, Z13.9 - Encounter for screening, unspecified Referrals Neurology Referral R51.9 - Headache, unspecified, Z82.0 - Family history of epilepsy and other diseases of the nervous system Medications: New omeprazole 20 mg PO DAILY 30 caps 1RF K21.9 - Gastro-esophageal reflux disease without esophagitis Coding Level of Care Code Est Pt Prev Care 18-39y([id number]) Diagnoses Annual physical exam Z00.00 Overweight (BMI 25.0-29.9) E66.3 Fatty liver K76.0 Microcytosis R71.8 GERD (gastroesophageal reflux disease) K21.9 Constipation K59.00 Dysuria R30.0 Insomnia G47.00 Head ache R51.9 Additional Codes CHELSEY-7 Assessment Billing - CHELSEY-7 Assessment Tool: CHELSEY-7 Assessment 14891 ([id number])
[2024-03-22 16:16] VITALS: BP 110/82; PULSE 77; O2SAT 98; BMI 28.9
== END 2024-03-22 17:13 | disposition home or self-care (01) ==
PROVIDERS: Visit Provider Internal Medicine
DX: Z00.00 Encounter for general adult medical examination without abnormal findings (principal); E66.3 Overweight; K76.0 Fatty (change of) liver, not elsewhere classified; R71.8 Other abnormality of red blood cells; R30.0 Dysuria; K21.9 Gastro-esophageal reflux disease without esophagitis; K59.00 Constipation, unspecified; G47.00 Insomnia, unspecified; R51.9 Headache, unspecified
CPT/HCPCS: 81003; 99395

== ENCOUNTER 2024-04-22 14:44 | Outpatient (REF) | payer BC, SELFPAY | END 2024-04-22 14:45 | disposition home or self-care (01) | LOC: HO.LAB 14:44 | PROVIDERS: PCP Internal Medicine; Visit Provider Advanced Practice Midwife | DX: Z13.89 Encounter for screening for other disorder (principal) ==

== ENCOUNTER 2024-04-22 14:44 | Outpatient (AMB) | payer BC, SELFPAY ==
[2024-04-22 15:02] VITALS: BP 112/60; BMI 29.5
--- NOTE | 2024-04-22 15:02 | MHC.OFFVIS ---
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 Allergies No Known Drug Allergies Allergy (Unknown, Verified 04/22/24 15:02) NONE Medication List - Last Reconciled 04/22/24 by Milady Giron CNM cholecalciferol (vitamin D3) 25 mcg PO DAILY nitrofurantoin monohyd/m-cryst 100 mg (Macrobid) 100 mg PO Q12H 7 days omega 4-kpb-kyo-fish oil 60-90-500 mg (Fish Oil) 1 cap PO DAILY omeprazole 20 mg PO DAILY zolpidem 5 mg PO BEDTIME PRN Is last menstrual period known: Yes Last menstrual period: 04/02/24 HPI HPI Pelvic Pain: Details: Patient is here to evaluate pain that she had on her left side was really bad for several days she wanted to be seen last Monday but could not get seen all last week she says the pain is better now she said she felt like there was a painful swollen round lump in her left groin she says her thought it might be a hernia. She gets regular periods though does not keep close track them because she has had her tubes tied she had abdominal plasty 3 years ago in the [place] she says she did not have any problem with healing. She thinks her last period might of been about 2-3 weeks she is not sure she also just recently about a week ago finished a course of true for untoward for urinary tract infection she was treated by her primary care provider she has not sure she noticed any improvement. She admits to having a history of herpes as is noted in the chart but has not had an outbreak in over year she has a prescription for Valtrex at home but has not needed to take any this past year she just gets tiny little cuts in her labia when she has an outbreak. She rarely shaves though she did shape before going away this past weekend but that was after the painful swelling was subsiding She did not think she cut herself shaving. [facility] Medical History LFT elevation Inflammation of sacroiliac joint Bronchitis Sinus infection Cough Mass of skin of back History of abnormal cervical Pap smear Surgical History History of thyroid surgery History of cholecystectomy Hx of tubal ligation H/O abdominoplasty Hx of section Family History Father TIA (transient ischemic attack) Bipolar 1 disorder Mental health disorder Multiple sclerosis Maternal Grandfather Heart attack Son Asperger's disorder Social History Housing: Apartment Alcohol intake: current Alcohol intake frequency: holidays/special occasions only Alcohol type: wine Comment: glass of wine QD Patient Tobacco Use Status: Never used Tobacco e-Cigarette/Vaping Use: Never Used service: No Current occupational status: employed Current occupation: [employer] Sexual orientation: Straight/Heterosexual Gender identity: Female Cognitive needs: No Hearing needs: No Vision needs: Yes Female Reproductive History Menstrual Age of Menarche: 10 Date of last menstrual period: 04/02/24 control method: permanent sterilization Total pregnancies: 3 Full term: 3 Physical Exam Vital Signs: Last Vital Signs BP 112/60 04/22/24 15:02 BMI result Body Mass Index 29.5 Other: On deep bimanual exam completely nontender on right there is very slight tenderness right in patient's inguinal area on deep palpation with a very slight thickening tissue there that might rep present some lingering lymphadenopathy, (? Possibly related to a subclinical herpetic episode?) Which is now resolving.... Vagina other was pink and moist cervix multiparous pink smooth healthy appearing uterus midposition mobile nontender adnexa nontender the area of tenderness she points out is more inguinal than pelvic External Female Exam: normal external appearance Speculum Exam - Vagina: normal appearance of the vagina and normal vaginal discharge Speculum Exam - Cervix: normal appearance of the cervix Bimanual exam- vagina & uterus: normal bimanual exam, uterine size normal, consistency normal, uterine mobility normal, uterine shape normal and non-tender Bimanual Exam- Adnexa, other: normal adnexae, no masses and No adnexal tenderness Assessment & Plan Assessment & Plan (1) LLQ abdominal pain: Code(s): R10.32 - Left lower quadrant pain Category: Medical (2) Pelvic pain: Comment: More in Left groin area with swelling has improved. very bad last week Code(s): R10.2 - Pelvic and perineal pain Category: Medical (3) UTI (urinary tract infection): Comment: Just completed a course of nitrofurantoin her PCC last week for UTI, wants test of cure... Code(s): N39.0 - Urinary tract infection, site not specified Category: Medical (4) History of herpes genitalis: Comment: No outbreak in a year has enough Valtrex for episodic Rx. See note ? Swollen gland left groin... Code(s): Z86.19 - Personal history of other infectious and parasitic diseases Category: Medical (5) Inguinal swelling: Comment: Painful last week has mostly resolved, slightly tender on very deep palpation Code(s): R19.09 - Other intra-abdominal and pelvic swelling, mass and lump Category: Medical Plan Patient is here to evaluate pain that she had on her left side was really bad for several days she wanted to be seen last Monday but could not get seen all last week she says the pain is better now she said she felt like there was a painful swollen round lump in her left groin she says her thought it might be a hernia. She gets regular periods though does not keep close track them because she has had her tubes tied she had abdominal plasty 3 years ago in the [place] she says she did not have any problem with healing. She thinks her last period might of been about 2-3 weeks she is not sure she also just recently about a week ago finished a course of true for untoward for urinary tract infection she was treated by her primary care provider she has not sure she noticed any improvement. She admits to having a history of herpes as is noted in the chart but has not had an outbreak in over year she has a prescription for Valtrex at home but has not needed to take any this past year she just gets tiny little cuts in her labia when she has an outbreak. She rarely shaves though she did shape before going away this past weekend but that was after the painful swelling was subsiding She did not think she cut herself shaving. Reviewed all the above there was a very slight thickness of tissue that corresponds when I palpate deeply with area of tenderness and patient's left groin. Discussed the possibility that perhaps her body was fighting a herpes outbreak and she was having a swollen lymph gland because of it. I suggested to her that if it recurs again she may want to consider taking the Valtrex that she has to suppress an outbreak and see if that helps in the meantime since she is concerned about her ovaries though this is not specifically in the area where her ovaries would be I am ordering a pelvic ultrasound just to alleviate her concerns and in addition I am recommending that she keep close track so that if the pain occurs again we can see if it is in relation to when she might be ovulating. We will have a visit after the ultrasound can be by phone if that suits her meanwhile we are also sending the urine culture. Additionally if it did occur again in that area if she could get checked at the time that the swelling is there that would certainly aid in diagnosis, as hernia could not be completely ruled out unless it were checked at the time Orders: Orders CT NG by PCR Today N89.8 - Other specified noninflammatory disorders of vagina, Z11.3 - Encounter for screening for infections with a predominantly sexual mode of transmission Bacterial Vaginosis Panel Today N89.8 - Other specified noninflammatory disorders of vagina Urine Culture Today R10.2 - Pelvic and perineal pain US pelvic and transvaginal Today N39.0 - Urinary tract infection, site not specified, R10.2 - Pelvic and perineal pain, R10.32 - Left lower quadrant pain, Z86.19 - Personal history of other infectious and parasitic diseases Coding Level of Care Code Est Pt Level 3 (47642) Diagnoses LLQ abdominal pain R10.32 Pelvic pain R10.2 UTI (urinary tract infection) N39.0 History of herpes genitalis Z86.19 Inguinal swelling R19.09
== END 2024-04-22 15:46 | disposition home or self-care (01) ==
LOC: HO.HWSM 14:44
PROVIDERS: PCP Internal Medicine; Visit Provider Advanced Practice Midwife
DX: R10.32 Left lower quadrant pain (principal); R10.2 Pelvic and perineal pain; N39.0 Urinary tract infection, site not specified; Z86.19 Personal history of other infectious and parasitic diseases; R19.09 Other intra-abdominal and pelvic swelling, mass and lump
CPT/HCPCS: 99213

== ENCOUNTER 2024-04-22 15:38 | Outpatient (REF) | payer BC, SELFPAY ==
[2024-04-23 11:13] LABS: Bacterial Vaginosis PCR NEGATIVE (Negative); Candida Group PCR NOT DETECTED (Not Detect); Candida glab krusei PCR NOT DETECTED (Not Detect); Trichomonas vaginalis PCR NOT DETECTED (Not Detect)
[2024-04-23 11:50] LABS: CT PCR NOT DETECTED (Not Detect.); NG PCR NOT DETECTED (Not Detect.)
== END 2024-04-22 15:39 | disposition home or self-care (01) ==
LOC: HO.LNP 15:38
PROVIDERS: Visit Provider Advanced Practice Midwife
DX: R10.2 Pelvic and perineal pain (principal); Z20.2 Contact with and (suspected) exposure to infections with a predominantly sexual mode of transmission; N89.8 Other specified noninflammatory disorders of vagina
CPT/HCPCS: 0352U; 87086; 87491; 87591

== ENCOUNTER 2024-04-26 11:44 | Outpatient (REF) | payer BC, SELFPAY ==
[2024-04-26 14:02] LABS: Appearance Urine Clear; Color Urine Yellow; Glucose Urine UA Negative (Negative); Leukocyte Esterase Urine Small (1+) (Negative); Nitrite Urine Negative (Negative); PH 5.5 (5.0-9.0); Specific Gravity - Urine 1.015 (1.005-1.025); UMIC TRIGGER UACC YES; Urine Blood Moderate (2+) (Negative); Urine Ketones Negative (Negative); Urine Protein 30 (1+) mg/dL (Neg-Trace)
[2024-04-26 14:12] LABS: Bacteria Urine Trace (None Seen); Hyaline Casts Urine 0-2 /LPF (0-2); UACC Culture Trigger YES
== END 2024-04-26 11:45 | disposition home or self-care (01) ==
LOC: HO.LAB 11:44
PROVIDERS: PCP Internal Medicine; Visit Provider Internal Medicine
DX: R30.0 Dysuria (principal); N39.0 Urinary tract infection, site not specified
CPT/HCPCS: 81001; 81003; 87086

== ENCOUNTER 2024-05-03 11:08 | Outpatient (REF) | payer BC, SELFPAY ==
--- NOTE | ~2024-05-03 | US_ITS ---
EXAMINATION: US PELVIS CLINICAL INFORMATION: Pelvic pain COMPARISON: 02/17/2017 TECHNIQUE: Ultrasound of the pelvis is performed using both transabdominal and transvaginal transducers along with Doppler. Transvaginal imaging is performed due to inadequate visualization transabdominally. FINDINGS: Uterus: The uterus is anteverted and measures 8.9 x 4 x 5.3 cm in the sagittal, AP and transverse dimensions. The endometrial thickness is within normal limits measuring 0.7 cm. Few echogenic endometrial foci are noted which may represent calcifications. Small anterior uterine body submucosal fibroid measuring 0.7 x 0.5 x 0.6 cm. Small nabothian cysts in the endocervix. Adnexa: Both ovaries are visualized. There is normal color flow to the adnexa. There is no ovarian torsion. There is no pelvic ascites or fluid collection. Right ovary measures 3.5 x 2.7 x 0.9 cm. Few follicles are noted. Left ovary measures 2.7 x 1.4 x 1.5 cm. A dominant follicle in the left ovary measures 1.4 x 1.1 x 1.2 cm, for which no dedicated follow-up is required US/US pelvic and transvaginal IMPRESSION: Small uterine fibroid. Few echogenic endometrial foci which may represent calcifications. Remarkable sonographic appearance of bilateral ovaries.
== END 2024-05-03 11:09 | disposition home or self-care (01) ==
LOC: HO.US 11:08
PROVIDERS: PCP Internal Medicine; Visit Provider Advanced Practice Midwife
DX: R10.2 Pelvic and perineal pain (principal); R10.32 Left lower quadrant pain; N39.0 Urinary tract infection, site not specified; Z86.19 Personal history of other infectious and parasitic diseases
CPT/HCPCS: 76830; 76856

== ENCOUNTER 2024-05-10 14:50 | Outpatient (AMB) | payer BC, SELFPAY ==
--- NOTE | 2024-05-10 14:51 | MHC.OFFVIS ---
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 Doing well with concerns: Left lower pelvic pain radiating to her hip region had ultrasound is waiting for results. She reports several days ago the pain was pretty intense. Onset of her concerns occurred in February when she went to her primary care and had a UTI noted was given Macrobid did not feel much better, then switch to Bactrim. On April 19 she reported pain in the upper back flank region of the left side and radiated down towards the groin and into the vagina and anal region. She reports at the time also noting some swelling in her lymph node in the left groin. She denies any constipation or diarrhea. She was seen last week and was told to take Valtrex for 7 days cause most likely it was herpes that caused inflammation in her pelvic area. GC chlamydia and BV panel are all negative from 04/22/2024. She tries to eat healthy, no regular exercise. Regular monthly menses. History of a tubal ligation. Currently is sexually active. She denies vaginal itching and irritation. Denies family history of breast, ovarian or colon cancer. Last pap smear 2022, negative. [facility] Medical History LFT elevation Inflammation of sacroiliac joint Bronchitis Sinus infection Cough Mass of skin of back History of abnormal cervical Pap smear Surgical History History of thyroid surgery History of cholecystectomy Hx of tubal ligation H/O abdominoplasty Hx of section Family History Father TIA (transient ischemic attack) Bipolar 1 disorder Mental health disorder Multiple sclerosis Maternal Grandfather Heart attack Son Asperger's disorder Social History Housing: Apartment Alcohol intake: current Alcohol intake frequency: holidays/special occasions only Alcohol type: wine Comment: glass of wine QD Patient Tobacco Use Status: Never used Tobacco e-Cigarette/Vaping Use: Never Used service: No Current occupational status: employed Current occupation: [employer] Sexual orientation: Straight/Heterosexual Gender identity: Female Cognitive needs: No Hearing needs: No Vision needs: Yes Female Reproductive History Menstrual Age of Menarche: 10 Duration of menses: 3-5 days Date of last menstrual period: 04/26/24 control method: permanent sterilization Permanent Sterilization: BTL Total pregnancies: 3 Full term: 3 Number of Living Children: 3 Date of last pap smear: 03/15/23 (neg pap and hpv) History of abnormal pap smear: Yes (see intake note) Review of Systems Const All systems reviewed & are unremarkable except as noted in HPI and below Reports as per HPI Eyes Reports no additional complaints ENT Reports no additional complaints Card Reports no additional complaints Resp Reports no additional complaints GI Reports as per HPI and Reports no additional complaints Reports as per HPI Musc Reports no additional complaints Skin/Breast Reports as per HPI Neuro Reports no additional complaints Psych Reports no additional complaints Endo Reports no additional complaints Zhao/Lymph Reports no additional complaints Aller/Immun Reports no additional complaints Physical Exam Vital Signs: Last Vital Signs BP 112/70 05/10/24 14:54 BMI result Body Mass Index 29.5 Const General: cooperative, healthy appearing, no acute distress, well developed and alert Orientation/consciousness: patient oriented x3 HEENT Head: Yes normal to inspection Eyes General: appearance normal, both eyes and all related structures Neck Neck: Yes normal visual inspection Thyroid: Thyroid normal Chest Chest palpation & inspection: normal inspection of the chest and other (no puckering, dimpling, peau de orange, retraction, discharge, masses) Breast/axilla inspection: normal inspection of the breasts Breast/axilla palpation: normal palpation of the breasts Resp Effort & Inspection: normal respiratory effort GI Other: Tenderness noted at scar left side and towards the hip Inspection: Yes normal to inspection and Yes scar Palpation (GI): Soft to palpation and Other GI palpation findings present (Tender to the left side of her abdominoplasty scar region) Rectal Exam - Female: deferred General: Yes bladder normal to palpation External Female Exam: normal external appearance and normal appearance of the urethra Speculum Exam - Vagina: normal appearance of the vagina, normal palpation and normal vaginal discharge Speculum Exam - Cervix: normal appearance of the cervix and normal palpation Bimanual exam- vagina & uterus: normal bimanual exam, normal palpation, uterine size normal, bladder normal to palpation, normal palpation and non-tender Bimanual Exam- Adnexa, other: no masses Skin General skin exam: no rashes or lesions noted Rashes: no rashes Neuro General: patient oriented x3 Cognition (Neuro): normal cognition Extrem General: Yes normal to inspection Psych Attitude: cooperative Thought process: Normal thought process present Assessment & Plan Assessment & Plan (1) Encounter for well woman exam with routine gynecological exam: Code(s): Z01.419 - Encounter for gynecological examination (general) (routine) without abnormal findings Category: Medical (2) Pelvic pain: Code(s): R10.2 - Pelvic and perineal pain Category: Medical Plan Discussed: Current recommendations for pap smears per ASCCP guidelines. Breast awareness and periodic breast exams. Mammogram ordered for July. Maintain a healthy lifestyle including a well balanced diet and routine exercise. If pelvic pain increases to go to the emergency room immediately for evaluation. Follow up with provider next week as booked to discuss test results. Pelvic pain causes may originate from the pelvis, the urinary tract system, the GI system and musculoskeletal causes. Mammogram yearly. Beta HCG. Repeat urine culture. Patient verbalizes understanding and agrees to the plan of care. She was given opportunity to ask questions and all questions were answered to the best of my ability. 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 This note is constructed using voice recognition software. While every effort has been made to ensure accuracy, activity aide errors may have been included. Orders: Orders UA CC w/rflx Micro + Cult Today R10.2 - Pelvic and perineal pain HCG Quantitative Today R10.2 - Pelvic and perineal pain MM tomosynthesis screening BI 07/23/24 Z12.31 - Encounter for screening mammogram for malignant neoplasm of breast Coding Level of Care Code Est Pt Prev Care 18-39y(83086) Diagnoses Encounter for well woman exam with routine gynecological exam Z01.419 Pelvic pain R10.2
[2024-05-10 14:54] VITALS: BP 112/70; BMI 29.5
== END 2024-05-10 15:40 | disposition home or self-care (01) ==
LOC: HO.HWS 14:50
PROVIDERS: PCP Internal Medicine; Visit Provider Advanced Practice Midwife
DX: Z01.419 Encounter for gynecological examination (general) (routine) without abnormal findings (principal); R10.2 Pelvic and perineal pain
CPT/HCPCS: 99395

== ENCOUNTER → 2024-05-10 14:50 | Outpatient (BNVA) | payer BC, SELFPAY | PROVIDERS: PCP Internal Medicine; Visit Provider Advanced Practice Midwife ==

== ENCOUNTER 2024-07-26 13:47 | Outpatient (REF) | payer BC, SELFPAY ==
--- NOTE | ~2024-07-26 | MM_ITS ---
EXAMINATION: MM SCREENING DIGITAL BREAST TOMOSYNTHESIS, BILATERAL CLINICAL INFORMATION: Screening. Asymptomatic. COMPARISON: Mammography: Baseline. TECHNIQUE: Digital breast mammography with tomosynthesis is performed in both the craniocaudal and mediolateral oblique views along with computer-aided detection (CAD). FINDINGS: The breasts are heterogeneously dense, which may obscure small masses (ACR BI-RADS breast composition Category c). There are no significant masses, abnormal calcifications, or other abnormalities. MM/MM tomosynthesis screening BI IMPRESSION: No mammographic evidence of malignancy. ASSESSMENT: BI-RADS BI-RADS 1 - Negative RECOMMENDATION: Routine annual mammography screening. 1 year F/U This examination should not preclude the clinical evaluation of a suspicious palpable abnormality. This patient's information was entered into a reminder system with a target due date for their next mammogram. Electronically signed by: Adri Rosales DO 08/07/2024 01:52 PM EDT
== END 2024-07-26 13:48 | disposition home or self-care (01) ==
LOC: HO.MAMMO 13:47
PROVIDERS: PCP Internal Medicine; Visit Provider Advanced Practice Midwife
DX: Z12.31 Encounter for screening mammogram for malignant neoplasm of breast (principal)
CPT/HCPCS: 77063; 77067

== ENCOUNTER → 2024-07-26 14:00 | Outpatient (BNV) | payer BC, SELFPAY | PROVIDERS: PCP Internal Medicine; Visit Provider Internal Medicine | DX: Z12.31 Encounter for screening mammogram for malignant neoplasm of breast (principal) | CPT/HCPCS: 77063; 77067 ==

== ENCOUNTER 2024-08-05 13:30 | Outpatient (AMB) | payer BC, SELFPAY ==
--- NOTE | 2024-08-05 13:33 | AM.OFFVISNUR ---
Intake Visit Reasons: flu shot Allergies No Known Drug Allergies Allergy (Unknown, Verified 05/10/24 14:54) NONE Office Procedures Flu Questionnaire Does the patient have a severe egg allergy?: No Does the patient have severe life threatening allergies?: No Does the patient have a fever or illness today?: No Has the patient ever had Guillain-[place] Syndrome?: No Has the patient ever had any past reaction to a flu shot?: No Assessment & Plan Assessment & Plan Orders: Orders Influenza [id number] Immunization Today Z23 - Encounter for immunization Medications: New Fluarix Triv [id number] (PF) (flu vacc [id number] 6mos up(PF)) 0.5 mL IM ONCE 0.5 mL 0RF NS Z23 - Encounter for immunization
== END 2024-08-05 13:41 | disposition home or self-care (01) ==
LOC: HO.HMCH 13:30
PROVIDERS: PCP Internal Medicine; Visit Provider Internal Medicine
DX: Z23 Encounter for immunization (principal)

== ENCOUNTER → 2024-08-05 13:30 | Outpatient (BNVA) | payer BC, SELFPAY | PROVIDERS: PCP Internal Medicine; Visit Provider Internal Medicine | DX: Z23 Encounter for immunization (principal) | CPT/HCPCS: 90471; 90656 ==

== ENCOUNTER 2025-02-07 13:42 | Outpatient (AMB) | payer BC, SELFPAY ==
--- NOTE | 2025-02-07 13:42 | A.OFFPC_ITS ---
Intake Visit Reasons: Follow Up/Concerns Service Manager Required: No Utility Manager: Not Required per policy Accompanied by: Self / Same As Patient Allergies No Known Drug Allergies Allergy (Unknown, Verified 02/07/25 13:43) NONE Tobacco use date assessed: 02/07/25 Dental Screening Dental Screen Date: 02/07/25 Did you have a dental visit in the last 12 months?: Yes Did you have a dental problem in the last 6 months where you did not have access to dental care?: No Was dental information given to patient?: Patient has dentist HPI Follow Up/Concerns HPI Details complains of stomach issues,, ? Lower left area- complains of chnages in bowel movement, constipation, pressure rectal - ? rectal mass PFSH Medical History LFT elevation Inflammation of sacroiliac joint Bronchitis Sinus infection Cough Mass of skin of back History of abnormal cervical Pap smear Surgical History History of thyroid surgery History of cholecystectomy Hx of tubal ligation H/O abdominoplasty Hx of section Family History Father TIA (transient ischemic attack) Bipolar 1 disorder Mental health disorder Multiple sclerosis Maternal Grandfather Heart attack Son Asperger's disorder Social History Housing: Apartment Alcohol intake: current Alcohol intake frequency: holidays/special occasions only Alcohol type: wine Comment: glass of wine QD Patient Tobacco Use Status: Never used Tobacco e-Cigarette/Vaping Use: Never Used Second Hand Smoke Exposure: No service: No Current occupational status: employed Current occupation: [employer] Sexual orientation: Straight/Heterosexual Gender identity: Female Cognitive needs: No Hearing needs: No Vision needs: Yes Female Reproductive History Menstrual Age of Menarche: 10 Questionnaire Thrive Questionnaire Date Thrive assessed: 03/22/24 CHELSEY-7 AMB Questionnaire CHELSEY-7 Date CHELSEY - 7 assessed: 03/22/24 Source: Developed by Drs. Souleymane Rodrigues, Aiyana Sabillon, Jerry hernández nd colleagues, with an educational omega from [employer]. Physical exam (Primary Care) Tobacco/Smoking Status: Tobacco use Status Tobacco use date assessed 02/07/25 02/07/25 13:43 Patient Tobacco Use Status Never used Tobacco 02/07/25 13:43 e-Cigarette/Vaping Use Never Used 02/07/25 13:43 Thrive Assessment: Date of Thrive Assessment Date Thrive assessed 03/22/24 02/07/25 13:43 Telehealth Telehealth Telehealth Platform: Telephone Location of provider rendering services: practice address Location of patient: address on file Patient Identification confirmed using: Name, : Yes Telehealth method: voice only Patient verbally consented to treatment: Yes Patient verbally consented to billing insurance company: Yes Patient informed of any privacy concerns related to visit: Yes Coding Level of Care Code Tele Est Pt Level 3 (06297) Diagnoses Microcytosis R71.8 Fatty liver K76.0 Rectal mass K62.89 Assessment & Plan Assessment & Plan (1) Microcytosis: Code(s): R71.8 - Other abnormality of red blood cells Category: Medical (2) Fatty liver: Comment: Ultrasound December 2023 Code(s): K76.0 - Fatty (change of) liver, not elsewhere classified Category: Medical Plan: Low-fat diet and exercise (3) Rectal mass: Code(s): K62.89 - Other specified diseases of anus and rectum Category: Medical Plan: Patient is advised to follow-up here in the office Plan History of Present Illness The patient is a 39-year-old female presenting with rectal symptoms and bowel changes. She describes persistent abdominal discomfort, particularly in the lower left quadrant. Recently, her bowel habits have altered, with the stool consistently appearing thin and difficulties in passing stool without the aid of MiraLAX. Constipation episodes are accompanied by a sensation of pressure around the rectum. A purplish-rosario lesion, resembling a potential hemorrhoid but atypically colored, has developed in her rectal area, causing discomfort. The patient is uncertain about the nature of this lesion due to differences from common hemorroidal representations. Additional personal history includes documented hepatic steatosis, impaired glucose tolerance, GERD, and a small uterine fibroid. Past lab results indicated normal blood sugar, microcytic normal blood count, and elevated liver function, with no abnormalities in renal function or electrolytes. Consistent discomfort from these symptoms persists, and further evaluation is to be sought post-vacation. Review of Systems - Gastrointestinal: Reports stomach issues, thin stools, constipation, rectal pressure. - Genitourinary: Reports presence of a purplish-rosario lesion in the rectal area. - Endocrine: Denies any specific complaints regarding glucose tolerance. - Respiratory: Denies any respiratory issues in the current context. Plan During this telehealth consultation, focus was placed on addressing the rectal symptoms and altered bowel habits. The rectal lesion's characteristics, suggestive of hemorrhoidal involvement though needing clinical confirmation, led to advice on enhanced hydration and dietary fiber intake. This approach aims to alleviate stool passage difficulty and mitigate hemorrhoidal pressure. Continued management of impaired glucose tolerance is essential, given its potential impact on liver health, necessitating future monitoring. The stability of previously identified hepatic steatosis and GERD was noted, with instructions to maintain current management strategies. Re-evaluation of these conditions will be carried out upon the patient's return from vacation. Patient was informed and verbally consented to the use of an ambient scribe for clinic note documentation during this visit. Discussion Notes During our discussion, the patient was informed about the possible diagnosis of hemorrhoids, with recognition of the need for further clinical evaluation upon return for a more precise diagnosis and treatment plan. Emphasis was placed on the importance of adequate hydration and high fiber intake to preclude constipation, which can exacerbate symptoms. I explained the probable nature of the rectal lesion and advised scheduling a more comprehensive examination following the patient's vacation. We discussed past medical concerns, particularly impaired glucose tolerance and hepatic steatosis, which necessitate ongoing monitoring. Upcoming evaluations to address all mentioned medical issues were advised for precise management. The patient agreed to follow provided recommendations and to consult for further evaluation after her return. Patient Instructions - Drink plenty of water daily. - Increase dietary fiber by consuming fruits, vegetables, and whole grains. - Continue the use of MiraLAX as needed for constipation. - Monitor stool changes and seek further consultation if symptoms worsen or persist. - Plan for a follow-up examination after vacation to reassess rectal symptoms and related concerns.
--- OUTSIDE RECORDS SUMMARY | 2025-02-07 14:03 | XMS_ITS | Encounter Summary ---
Author Organization [employer] Address [address] [facility] [address] [place] [address] Care Team Providers Care Headlight Adjuster Name Role Phone Unavailable Primary Care Provider Unavailabl e Encounter Details Date Type Department Care Team (Late st Contact Info) Description 08/10/[address] [id number] PcpSg Unassigned Social History Tobacco Use Types Packs/Day Years Used Date Smoking Tobacco: Never Assessed Comments Unknown Sex and Gender Information Value Date Recorded Sex Assigned at Female 08/22/2022 10:15 AM EDT Legal Sex Female 10:15 AM EDT Gender Identity Female 08/22/2022 10:15 AM EDT Sexual Orientation Straight 08/22/2022 10 :15 AM EDT documented as of this encounter Plan of Treatment Not on file documented as of this encounter Visit Diagnoses Not on filedocumented in this encounter
--- OUTSIDE RECORDS SUMMARY | 2025-02-07 14:03 | XMS_ITS | Encounter Summary ---
Author Organization [employer] Address [address] [facility] [address] [place] [address] Care Team Providers Care Workers Compensation Attorney Name Role Phone Unavailable Primary Care Provider Unavailabl e Encounter Details Date Type Department Care Team (Latest Contact Info) Description 06/16/2021 Abstract [facility] CONVERSION[facility] Dental, Provider, DDS Social History Tobacco Use Types Packs/Day Years [...]
--- OUTSIDE RECORDS SUMMARY | 2025-02-07 14:03 | XMS_ITS | Clinical Summary ---
Author Organization [employer] [facility] Address [address] [place] [address] Care Team Providers Care Motor Analyst Name Role Phone Maikol Casanova MD Primary Care Provider [phone] Allergies No known active allergies Medications No known medications Active Problems No known active problems Social History Tobacco Use Types Packs/Day Years Used Date Smoking Tobacco: Never Smokeless Tobacco: Never Alcohol Use Standard Drinks/Week Comments Yes 1 (1 standard drink = 0.6 oz pur e alcohol) Sex and Gender Information Value Date Recorded Sex Assigned at Not on file Gender Identity Not on file Sexual Orientation Not on file Last Filed Vital Signs Vital Sign Reading Time Taken Comments Blood Pressure - - Pulse - - Temperature - - Respiratory Rate - - Oxygen Saturation - - Inhaled Oxygen Concentration - - Weight 65.8 kg (145 lb) 05/20/2019 9:31 AM EDT Height 160 cm (5' 3 ) 05/20/2019 9:31 AM EDT Body Mass Index 25.69 05/20/2019 9:31 AM EDT Plan of Treatment Health Maintenance Due Date Last Done Comments Hepatitis B Vaccines (1 of 3 - 3-dose series) 1984 Hepatitis C Screening 1984 COVID-19 Vaccine (#1) 01/13/1985 Depression Screening 1996 BMI Counseling 2002 Preventative Health Evaluation 2002 DTap / Tdap / Td (1 - Tdap) 2003 Cervical Cancer Screening (P ap Smear) 2005 Influenza Vaccine (#1) 2024 Pneumococcal Vaccine Aged Out No long er eligible based on patient's age to complete this topic RSV Ped < 20 months Aged Out No longe r eligible based on patient's age to complete this topic Insurance Payer Benefit Plan / Group Subscriber ID Effective Dates Phone Address [facility] [id number] 2010-Present [address] [facility] [address] [place] [address] HMO Care Teams Motor Analyst Relationship Specialty Start Date End Date Maikol Casanova MD PCP - General Internal Medicine 01/10/19
--- OUTSIDE RECORDS SUMMARY | 2025-02-07 14:03 | XMS_ITS | Encounter Summary ---
Author Organization [employer] Address [address] [facility] [address] [place] [address] Care Team Providers Care Manufacturing Weaver Name Role Phone Unavailable Primary Care Provider Unavailabl e Encounter Details Date Type Department Care Team (Latest Contact Info) Description 06/21/2019 Abstract [facility] CONVERSIONS Dental, Provider, DDS Social History Tobacco [...]
--- OUTSIDE RECORDS SUMMARY | 2025-02-07 14:03 | XMS_ITS | Clinical Summary ---
Author Organization [employer] Address [address] [place] [address] [address] [place] [address] Care Team Providers Care Salesperson Floor Coverings Name Role Phone Unavailable Primary Care Provider Unavailabl e Immunizations Name Administration Dates Next Due PPD Test 06/05/2023 Social History Tobacco Use Types Packs/Day Years Used Date Smoking Tobacco: Never Assessed Comments Unknown Sex and Gender Information Value Date Recorded Sex Assigned at Female 08/22/2022 10:15 AM EDT Legal Sex Female 10:15 AM EDT Gender Identity Female 08/22/2022 10:15 AM EDT Sexual Orientation Straight 08/22/2022 10 :15 AM EDT Plan of Treatment Health Maintenance Due Date Last Done Comments Depression Screening 1984 HIV Screening 1984 SDOH Screening 1984 Alcohol/Substance Use Screening 1996 Tobacco Screening 1996 Family Planning (PISQ) 1999 Hepatitis C Screening 2002 DTaP/Tdap/Td Vaccines (1 - Tdap) 2003 Hepatitis B Vaccines (1 of 3 - 19+ 3-dose series) 2003 Pap Smear 2005 Cervical Cancer Screening 2014 HPV/Cotest 2014 Dental Oral Exam 03/29/2017 09/27/2016, 10/30/2009 Dental X-Ray: Full Mouth 09/28/2019 09/27/2016 Dental X-Ray: Bitewings 06/17/2022 06/16/20 21, 05/21/2021, 09/27/2016, Additional history exists Dental Prophylaxis 03/06/2023 09/05/2022, 0 06/16/2021, 06/21/2019, Additional history exists COVID-19 Vaccine ( - season) 2024 11/17/2020, 10/20/2020 Influenza Vaccine (#1) 2024 07/15/2020 Mammogram 2024 Zoster Vaccines (1 of 2) 2034 RSV Patients and Patients Aged 60 years or older (1 - 1-dose 75+ series) 2059 HIB Vaccines Aged Out No longer eligi ble based on patient's age to complete this topic HPV Vaccines Aged Out No longer eligi ble based on patient's age to complete this topic Hepatitis A Vaccines Aged Out No long er eligible based on patient's age to complete this topic IPV Vaccines Aged Out No longer eligi ble based on patient's age to complete this topic Meningococcal Vaccine Aged Out No nena jaylen eligible based on patient's age to complete this topic Pneumococcal Vaccine: Pediatrics (0 to 5 Years) and At-Risk Patients (6 to 49) Years) Aged Out No longer eligible based on patient's age to complete this topic RSV under 20 months Aged Out No longe r eligible based on patient's age to complete this topic Rotavirus Vaccines Aged Out No longer eligible based on patient's age to complete this topic Procedures Procedure Name Priority Date/Time Associated Diagnosis Comments PROPHYLAXIS - ADULT Routine 09/05/2022 1 2:00 AM EST BITEWINGS - 4 RADIOGRAPHIC IMAGES Routine 06/16/2021 12:00 AM EDT INTRAORAL - COMPLETE SERIES OF RADIOGRAPHIC IMAGES Routine 09/27/2016 12:00 AM EST COMPREHENSIVE ORAL EVALUATION - NEW OR ESTABLISHED PATIENT Routine 09/27/2016 12:00 AM EST from Last 3 Months or Most Recently Relevant to Health Maintenance
--- OUTSIDE RECORDS SUMMARY | 2025-02-07 14:03 | XMS_ITS | Encounter Summary ---
Author Organization [employer] Address [address] [place] [address] [address] [place] [address] Care Team Providers Care Caustic Room Operator Name Role Phone Unavailable Primary Care Provider Unavailabl e Encounter Details Date Type Department Care Team (Latest Contact Info) Description 09/05/2022 Abstract [facility] CONVERSIONS Dental, Provider, DDS Social History [...]
== END 2025-02-07 16:09 | disposition home or self-care (01) ==
LOC: HO.HMCH 13:42
PROVIDERS: PCP Internal Medicine; Visit Provider Internal Medicine
DX: R71.8 Other abnormality of red blood cells (principal); K76.0 Fatty (change of) liver, not elsewhere classified; K62.89 Other specified diseases of anus and rectum

== ENCOUNTER → 2025-02-07 13:42 | Outpatient (BNVA) | payer BC, SELFPAY | PROVIDERS: PCP Internal Medicine; Visit Provider Internal Medicine ==

== ENCOUNTER 2025-03-28 13:15 | Outpatient (AMB) | payer BC, SELFPAY ==
--- OUTSIDE RECORDS SUMMARY | 2025-03-28 13:18 | XMS_ITS | Clinical Summary ---
Author Organization [employer] [facility] Address [address] [place] [address] Care Team Providers Care Transitional Care Liaison Name Role Phone Maikol Casanova MD Primary Care Provider [phone] Allergies No known active allergies Medications No [...] Screening (P ap Smear) 2005 Influenza Vaccine (Season Ended) 2025 Pneumococcal Vaccine Aged Out No long er eligible based on patient's age to complete this topic RSV Ped < 20 months Aged Out No longe r eligible based on patient's age to complete this topic Insurance Payer Benefit Plan / Group Subscriber ID Effective Dates Phone Address [facility] [id number] 2010-Present [address] [facility] [address] [place] [address] HMO Care Teams Transitional Care Liaison Relationship Specialty Start Date End Date Maikol Casanova MD PCP - General Internal Medicine 01/10/19
[2025-03-28 13:20] VITALS: BP 96/72; PULSE 84; O2SAT 98; BMI 28.4
--- NOTE | 2025-03-28 13:20 | A.OFFPC_ITS ---
Vital Signs 03/28/25 13:20 Height 5 ft 1 in Weight 150 lb 8 oz BMI 28.4 BP 96/72 Blood Pressure Location Lt brachial Position Sitting Pulse 84 Pulse Source Pulse Oximeter Pulse Oximetry (%) 98 Oxygen Delivery Method Room Air Intake Visit Reasons: Annual Exam Blueprint Engineer Required: No Accompanied by: Self / Same As Patient Allergies No Known Drug Allergies Allergy (Unknown, Verified 03/28/25 13:29) NONE Medication List - Last Reconciled 03/28/25 by Ravinder Murillo MD biotin (Hair, Skin and Nails (biotin)) mcg PO valacyclovir (Valtrex) 500 mg PO BID zolpidem 10 mg PO BEDTIME PRN Tobacco use date assessed: 03/28/25 Dental Screening Dental Screen Date: 03/28/25 Did you have a dental visit in the last 12 months?: No Did you have a dental problem in the last 6 months where you did not have access to dental care?: No Was dental information given to patient?: Patient has dentist [facility] Medical History LFT elevation Inflammation of sacroiliac joint Bronchitis Sinus infection Cough Mass of skin of back History of abnormal cervical Pap smear Surgical History History of thyroid surgery History of cholecystectomy Hx of tubal ligation H/O abdominoplasty Hx of section Family History (Updated 03/28/25 @ 13:42 by Ravinder Murillo MD) Father TIA (transient ischemic attack) Bipolar 1 disorder Mental health disorder Multiple sclerosis Maternal Grandfather Heart attack Son Asperger's disorder Mother Heart attack Social History (Updated 03/28/25 @ 13:43 by Ravinder Murillo MD) Housing: Apartment Alcohol intake: current Alcohol intake frequency: holidays/special occasions only Alcohol type: wine Comment: glass of wine QD=twice A year 1 glass Patient Tobacco Use Status: Never used Tobacco e-Cigarette/Vaping Use: Never Used Second Hand Smoke Exposure: No service: No Current occupational status: employed Current occupation: [employer] Sexual orientation: Straight/Heterosexual Gender identity: Female Cognitive needs: No Hearing needs: No Vision needs: Yes Female Reproductive History Menstrual Age of Menarche: 10 Questionnaire PHQ-9 Over the last 2 weeks, how often have you been bothered by any of the following problems? 1. Little interest or pleasure in doing things: not at all 2. Feeling down, depressed, or hopeless: not at all 3. Trouble falling or staying asleep, or sleeping too much: nearly every day 4. Feeling tired or having little energy: several days 5. Poor appetite or overeating: not at all 6. Feeling bad about yourself - or that you are a failure or have let yourself or your family down: not at all 7. Trouble concentrating on things, such as reading the newspaper or watching television: not at all 8. Moving or speaking so slowly that other people could have noticed. Or the opposite - being so fidgety or restless that you have been moving around a lot more than usual: not at all 9. Thoughts that you would be better off or of hurting yourself in some way: not at all Total score: 4 Depression Screening Interpretation: Positive Depression Screening Done: Yes 53821 - PHQ-9 Billing: Yes Source: Developed by Drs. Souleymane Rodrigues, Aiyana Sabillon, Jerry Reza and colleagues, with an educational omega from [employer]. Thrive Questionnaire Date Thrive assessed: 03/28/25 I am a: Patient What is your living situation today?: I have a steady place to live Within the past 12 months, did the food you bought not last and you didn't have the money to get more?: Never true Within the past 12 months, did you worry whether your food would run out before you got money to buy more?: Never true Do you have trouble paying for medicines?: Yes Do you have trouble getting transportation to medical appointments?: No Do you have trouble paying your heating and electricity bill?: No Do you have trouble taking care of your child, family member or friend?: No Do you have trouble with day-to-day activities such as bathing, preparing meals, shopping, managing finances, etc.?: No Are you currently unemployed and looking for a job?: No Are you interested in more education?: No Please select the resources that you would like help with: None Currently or been in a relationship where the following occur: No concerns reported THRIVE Score: 0 AUDIT C Alcohol Use Questionnaire (AUDIT-C) 1. How often do you have a drink containing alcohol?: Never 3. How often do you have six or more drinks on one occasion?: Never Total Score: 0 CHELSEY-7 AMB Questionnaire CHELSEY-7 Date CHELSEY - 7 assessed: 03/28/25 Feeling nervous, anxious, or on edge: 0 = Not at all Not being able to stop or control worryin = Not at all Worrying too much about different things: 0 = Not at all Trouble relaxin = Not at all Being so restless that it is hard to sit still: 0 = Not at all Becoming easily annoyed or irritable: 0 = Not at all Feeling afraid as if something awful might happen: 0 = Not at all Total CHELSEY-7 score (0-4 normal; 5-9 mild; 10-14 moderate; 15-21 severe): 0 Source: Developed by Drs. Souleymane Rodrigues, Aiyana Sabillon, Jerry Reza and colleagues, with an educational omega from [employer]. Review of Systems Const Denies poor appetite and Denies weakness Eyes Denies no additional complaints ENT Reports Normal hearing present, Denies dizziness, Denies nasal congestion, Denies tinnitus and Denies sore throat Card Denies chest pain, Denies syncope, Denies rapid heart rate and Denies dyspnea Resp Denies cough and Denies dyspnea GI Denies change in stool character, Reports constipation, Denies diarrhea, Denies nausea and Denies vomiting Denies urinary frequency, Denies difficulty voiding and Denies dysuria Neuro Reports Normal hearing present, Denies confusion, Denies dizziness, Denies synco pe and Denies weakness Psych Denies confusion Physical exam (Primary Care) Vital Signs: Last Vital Signs Pulse 84 03/28/25 13:20 BP 96/72 03/28/25 13:20 Pulse Ox 98 03/28/25 13:20 Oxygen Delivery Method Room Air 03/28/25 13:20 BMI result Body Mass Index 28.4 Tobacco/Smoking Status: Tobacco use Status Tobacco use date assessed 03/28/25 03/28/25 13:31 Patient Tobacco Use Status Never used Tobacco 03/28/25 13:43 e-Cigarette/Vaping Use Never Used 03/28/25 13:43 PHQ-9: PHQ-9 Score PHQ-9: Total score 4 03/28/25 13:39 Depression Screening Interpretation: Positive Thrive Assessment: Date of Thrive Assessment Date Thrive assessed 03/28/25 03/28/25 13:31 Currently or been in a relationship where the following occur: No concerns reported Const General: No confusion Orientation/consciousness: No confusion HENMT Head: Yes normocephalic Ears: external ears normal and TM's normal bilaterally Face and sinus: Yes normal facial exam Mouth: moist mucous membranes Throat: Yes tonsils normal Eyes Conjunctivae: conjunctivae normal Pupils: Equal, round and reactive pupils present and Pupil accommodation reflex normal Direct Ophthalmoscopy: normal light reflex Neck Neck: No lymphadenopathy Thyroid: Thyroid normal Chest Chest palpation & inspection: normal inspection of the chest Resp Effort & Inspection: normal respiratory effort and no audible wheezes Auscultation: clear to auscultation bilaterally, no crackles, no wheezes and lung sounds not diminished Cardio Rate: regular rate Rhythm: regular rhythm Peripheral pulses: radial pulses present and dorsalis pedis present GI Palpation (GI): no masses Auscultation: normal bowel sounds and normoactive bowel sounds Rectal Exam - Female: deferred Skin General skin exam: no rashes or lesions noted Rashes: no rashes Neuro General: No confusion Cranial nerves: Yes Equal, round and reactive pupils present and Yes Normal hearing present Cognition (Neuro): normal cognition Gait exam (Neuro): Normal gait present Motor exam (neuro): 5/5 motor strength present throughout Deep tendon reflexes (DTR's): Right brachioradialis reflex intensity grade: 2+, Left brachioradialis reflex intensity grade: 2+, Right patellar reflex intensity grade: 2+ and Left patellar reflex intensity grade: 2+ Extrem General: No edema Coding Level of Care Code Est Pt Prev Care 40-64y(97018) Diagnoses Annual physical exam Z00.00 Overweight E66.3 Fatty liver K76.0 GERD (gastroesophageal reflux disease) K21.9 Insomnia G47.00 Hemorrhoid K64.9 Sacroiliac joint pain M53.3 Additional Codes PHQ-9 - 78611 - PHQ-9 Billing: Yes ([id number]) Assessment & Plan Assessment & Plan (1) Annual physical exam: Code(s): Z00.00 - Encounter for general adult medical examination without abnormal findings Category: Medical Plan: Patient is advised to eat healthy, keep well hydrated, keep active and have adequate sleep. (2) Overweight: Code(s): E66.3 - Overweight Category: Medical Plan: Diet and exercise (3) Fatty liver: Comment: Ultrasound December 2023 Code(s): K76.0 - Fatty (change of) liver, not elsewhere classified Category: Medical Plan: Low-fat diet and exercise (4) GERD (gastroesophageal reflux disease): Code(s): K21.9 - Gastro-esophageal reflux disease without esophagitis Category: Medical Plan: Avoid the foods that causes that usually spicy foods, tomato products, juices, coffee, soda and foods that your sensitive to. After eating do not lie down, allow 3-4 hours before in lie down. And keep the head of bed above 30 degrees to avoid the acid from going up. (5) Insomnia: Code(s): G47.00 - Insomnia, unspecified Category: Medical (6) Hemorrhoid: Code(s): K64.9 - Unspecified hemorrhoids Category: Medical (7) Sacroiliac joint pain: Code(s): M53.3 - Sacrococcygeal disorders, not elsewhere classified Category: Medical Plan History of Present Illness The patient is a 39-year-old female presenting for a physical examination and wellness check-up. Her medical history includes bilateral hip osteoarthritis that has been affecting her mobility but remains stable without new interventions. Impaired glucose tolerance identified in earlier tests necessitates dietary management and regular monitoring. Hepatic steatosis is also managed through lifestyle changes focusing on diet and exercise. GERD management includes a specific reflux plan tailored to her symptoms. She monitors her liver function and glucose levels regularly in conjunction with her low-fat diet and exercise regimen. Concerns about hair thinning were brought up during the visit, and she experiences occasional dizziness, likely tied to lower than recommended fluid intake levels. Her familial predisposition to heart disease, with a history of her mother having two heart attacks, plays a role in her active management of cardiovascular risk factors. Health Maintenance - Mammogram last conducted in July 2024; results were not specified during the visit. - Blood work performed in November 2023 showed normal thyroid function; monitoring continues for glucose, cholesterol, and liver function. - Discussion of a low-fat diet and exercise regimen for weight and glucose control. - Advised on maintaining adequate hydration, targeting six to eight glasses of water daily to prevent dizziness. - Family history of cardiovascular disease was noted, and ongoing monitoring was advised. - Cervical cancer screening and gynecological follow-up planned; awaiting results of a previous vaginal workup. Social History - Ceased alcohol consumption, with rare intake (once or twice a year on special occasions). - Denies smoking or use of recreational drugs. - Current occupation involves significant periods of sitting and moderate walking associated with her job role. - Reports light activity level with focus on maintaining physical activity through regular walking. Review of Systems - Musculoskeletal: Reports hip discomfort due to osteoarthritis. - Gastrointestinal: Reports managed GERD symptoms, history of constipation, potential hemorrhoid occurrence. - Integumentary: Reports thinning hair. - Neurological: Reports dizziness associated with low fluid intake. - Cardiovascular: Denies tobacco and recreational drug use. - Visual: Reports adjustment issues with contact lenses, use of glasses confirmed stable. Physical Exam General: Cooperative, healthy appearing, comfortable, no acute distress and well developed Orientation: Patient oriented x3 Limitations: No limitations Head: Normal to inspection Ears: Hearing grossly normal bilaterally Nose: Normal external nose present Face and sinus: Normal facial exam Eyes: Appearance normal, both eyes and all related structures, but patient reports occasional prickly sensation and darkness in one eye upon waking Neck: Normal visual inspection and Yes full ROM Respiratory: Normal respiratory effort and able to speak in complete sentences. Clear to auscultation bilaterally Cardiovascular: Regular rate and rhythm. Normal S1 and S2 GI: Normal to inspection. Soft to palpation and nontender, but patient reports discomfort and history of hemorrhoids Skin: No rashes or lesions noted Neuro: Patient oriented x3, reports occasional dizziness Extremities: Normal to inspection, but patient reports discomfort in sacroiliac joint area and occasional sciatica symptoms Results - Labs: Blood work from November 2023 shows normal thyroid function. - Tests: Mammogram last conducted in July 2024. Plan I have scheduled a fasting blood test to monitor glucose levels, cholesterol, and liver function due to the patient's impaired glucose tolerance and hepatic steatosis. I recommended increasing fluid intake to manage dizziness, alongside lifestyle adherence for weight and glucose control, given stable osteoarthritis symptoms. The reflux management plan remains unchanged given its effectiveness. For hair thinning, the outcomes of the blood work will dictate further steps, potentially involving dermatological consultation. Patient was informed and verbally consented to the use of an ambient scribe for clinic note documentation during this visit. Discussion Notes I discussed the overall management of the patient's conditions, emphasizing regular monitoring of glucose and liver functions due to impaired glucose tolerance and hepatic steatosis. I reiterated the importance of lifestyle modifications, including maintaining hydration and a balanced diet for managing her symptoms. For GERD, continuation of current management was advised. Hair thinning concerns will be followed up, contingent on blood work outcomes. We reviewed familial cardiac history, diet, exercise requirements, and the rationale for blood work. I underscored this plan's preventative aspects, stressing cardiovascular risk monitoring, including herymonitoring of ocular health, though current issues with visual aids seem stable. Patient Instructions - Drink at least six to eight glasses of water daily to prevent dizziness. - Continue low-fat diet and regular exercise as advised. - Monitor and report any changes in GERD symptoms. - Follow up with fasting blood work as scheduled. - Maintain current medication regimen for sleep if necessary. - Seek medical attention if dizziness worsens or new symptoms develop. Orders: Orders Lipid Panel Today E78.00 - Pure hypercholesterolemia, unspecified, K76.0 - Fatty (change of) liver, not elsewhere classified Vitamin D 25-OH Total Today K76.0 - Fatty (change of) liver, not elsewhere classified Complete Blood Count Auto Diff Today K76.0 - Fatty (change of) liver, not elsewhere classified Comprehensive Met. Panel Today K76.0 - Fatty (change of) liver, not elsewhere classified Free T4 (Free Thyroxine) Today K76.0 - Fatty (change of) liver, not elsewhere classified Thyroid Stimulating Hormone Today K76.0 - Fatty (change of) liver, not elsewhere classified Vitamin B12 and Folate Today K76.0 - Fatty (change of) liver, not elsewhere classified Hemoglobin A1c Today K76.0 - Fatty (change of) liver, not elsewhere classified Medications: Refilled zolpidem 10 mg PO BEDTIME PRN 14 tabs 2RF sleep G47.00 - Insomnia, unspecified
== END 2025-03-28 13:57 | disposition home or self-care (01) ==
LOC: HO.HMCH 13:16
PROVIDERS: PCP Internal Medicine; Visit Provider Internal Medicine
DX: Z00.00 Encounter for general adult medical examination without abnormal findings (principal); E66.3 Overweight; K76.0 Fatty (change of) liver, not elsewhere classified; K21.9 Gastro-esophageal reflux disease without esophagitis; G47.00 Insomnia, unspecified; K64.9 Unspecified hemorrhoids; M53.3 Sacrococcygeal disorders, not elsewhere classified

== ENCOUNTER → 2025-03-28 13:15 | Outpatient (BNVA) | payer BC, SELFPAY | PROVIDERS: PCP Internal Medicine; Visit Provider Internal Medicine | DX: Z00.00 Encounter for general adult medical examination without abnormal findings (principal); E66.3 Overweight; K76.0 Fatty (change of) liver, not elsewhere classified; K21.9 Gastro-esophageal reflux disease without esophagitis; G47.00 Insomnia, unspecified; K64.9 Unspecified hemorrhoids; M53.3 Sacrococcygeal disorders, not elsewhere classified; E78.00 Pure hypercholesterolemia, unspecified; M17.0 Bilateral primary osteoarthritis of knee; R42 Dizziness and giddiness; Z68.28 Body mass index [BMI] 28.0-28.9, adult | CPT/HCPCS: 96127 ==

== ENCOUNTER 2025-10-10 08:55 | Outpatient (REF) | payer BC, SELFPAY ==
[2025-10-10 09:13] LABS: MANUAL DIFF FLAG NO
--- OUTSIDE RECORDS SUMMARY | 2025-10-10 09:17 | XMS_ITS | Clinical Summary ---
Author Organization [facility] Prior to 03/22/[address] [place] [address] Care Team Providers Care Heel Cover Splitter Name Role Phone Maikol Casanova MD Primary Care Provider [phone] Allergies No known active allergies Medications No [...] (P ap Smear) 2005 Influenza Vaccine (#1) 2025 Pneumococcal Vaccine Aged Out No long er eligible based on patient's age to complete this topic RSV Ped < 20 months Aged Out No longe r eligible based on patient's age to complete this topic Care Teams Heel Cover Splitter Relationship Specialty Start Date End Date Maikol Casanova MD PCP - General Internal Medicine 01/10/19
--- OUTSIDE RECORDS SUMMARY | 2025-10-10 09:17 | XMS_ITS | Encounter Summary ---
Author Organization [facility] [employer] Address [address] [facility] [address] [place] [address] Care Team Providers Care Elevator Technician Name Role Phone Unavailable Primary Care Provider Unavailabl e Encounter Details Date Type Department Care Team (Latest Contact Info) Description 09/05/2022 Abstract [facility] CONVERSIONS Dental, Provider, DDS Social History [...]
--- OUTSIDE RECORDS SUMMARY | 2025-10-10 09:17 | XMS_ITS | Encounter Summary ---
Author Organization [facility] Address [address] [facility] [address] [place] [address] Care Team Providers Care Bull Riveter Name Role Phone Unavailable Primary Care Provider Unavailabl e Encounter Details Date Type Department Care Team (Latest Contact Info) Description 06/16/2021 Abstract [facility] CONVERSIONS Dental, Provider, DDS Social History Tobacco [...]
--- OUTSIDE RECORDS SUMMARY | 2025-10-10 09:17 | XMS_ITS | Clinical Summary ---
Author Organization [address] [place] [address] Address [address] [place] [address] Phone Care Team Providers Care Date Night Sitter Name Role Phone Ravinder Murillo MD Primary Care Provider [phone] Allergies No known active allergies Medications ibuprofen (ADVIL,MOTRIN) 800 mg tablet Take 800 mg by mouth every 8 hours as needed. Active valACYclovir (VALTREX) 1 gram tablet Take 1 tablet by mouth 3 times daily. 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 Chronic cholecystitis with calculus DX:Chronic cholecystitis with calculus Genital herpes DX:Genital herpe s Family History Medical History Relation Name Comments Diabetes Father Hypertension Father Diabetes Mother Hypertension Mother Relation Name Status Comments Brother 1 Alive Brother 2 Alive Father Alive hypothyroid, sl eep apnea, MS Mother Alive htn, dm, hypoth yroid Sister 1 Alive Sister 2 Alive Social History Tobacco Use Types Packs/Day Years Used Date Smoking Tobacco: Never Smokeless Tobacco: Never Alcohol Use Standard Drinks/Week Comments Yes 5.8 (1 standard drink = 0.6 oz p ure alcohol) Comments Unknown Sex and Gender Information Value Date Recorded Sex Assigned at Not on file Legal Sex Female 9:53 PM EST Gender Identity Not on file Sexual Orientation Not on file Plan of Treatment Upcoming Encounters Date Type Department Care Team ([facility] st Contact Info) Description 11/10/2025 9:40 AM EST Consult Gastroenterology - [address] [phone] Cheyanne Mcintosh, EDNNIS [address] [address] Health Maintenance Due Date Last Done Comments Breast Cancer Screening 1984 Hepatitis B Vaccines (1 of 3 - 19+ 3-dose series) 2003 HPV Vaccines (1 - 3-dose SCD M series) 2011 HIV Screening 10/01/2022 Hepatitis C Screening 10/01/2022 Social Influencers of Health Screening 10/01/2022 Depression Screening 10/23/2024 Cervical Cancer Screening: P ap Smear 12/29/2024 12/29/2021 COVID-19 Vaccine (1 - 2024-2 6 season) 2025 Influenza Vaccine (#1) 2025 DTaP,Tdap,and Td Vaccines (3 - Td or Tdap) 09/18/2027 09/18/2017, 08/11/2013 RSV Immunization Adult Patients (1 - 1-dose 75+ series) 2059 MMR Vaccines Aged Out 02/24/2021 No longer eligi ble based on patient's age to complete this topic HIB Vaccines Aged Out No longer eligi ble based on patient's age to complete this topic Hepatitis A Vaccines Aged Out No long er eligible based on patient's age to complete this topic IPV Vaccines Aged Out No longer eligi ble based on patient's age to complete this topic Meningococcal ACWY Vaccine Aged Out N o longer eligible based on patient's age to complete this topic Meningococcal B Vaccine Aged Out No l onger eligible based on patient's age to complete this topic Pneumococcal Vaccine: Pediatrics (0 to 5 Years) and At-Risk Patients (6 to 49 Years) Aged Out No longer eligible b ased on patient's age to complete this topic RSV Immunization Patients Under 20 months Aged Out No longer eligible b ased on patient's age to complete this topic Varicella Vaccines Aged Out No longer eligible based on patient's age to complete this topic Procedures Procedure Name Priority Date/Time Associated Diagnosis Comments PAP SMEAR Routine 12/29/2021 from Last 3 Months or Most Recently Relevant to Health Maintenance Results * Pap Smear (12/29/2021) Pap smear Abstracted, no interpretation [facility] Provider MD HEALTH MAINTENANCE Final Result from Last 3 Months or Most Recently Relevant to Health Maintenance Insurance [facility] Care Teams Date Night Sitter Relationship Specialty Start Date End Date Ravinder Murillo MD [address] [place] [address] Dr [address] [facility] [place] [address] PCP - General Internal Medicine 06/18/25
--- OUTSIDE RECORDS SUMMARY | 2025-10-10 09:17 | XMS_ITS | Clinical Summary ---
Author Organization [employer] Address [address] [place] [address] [address] [place] [address] Care Team Providers Care Outside Industrial Sales Representative Name Role Phone Unavailable Primary Care Provider Unavailabl e Immunizations Immunization Administration Dates Next Due PPD Test 06/05/2023 [...] 1984 HIV Screening 1984 SDOH Screening 1984 Disability Screening 1984 Alcohol/Substance Use Screening 1996 Tobacco Screening 1996 Family Planning (PISQ) 1999 HPV Vaccines (1 - 3-dose series) 1999 Hepatitis C Screening 2002 DTaP/Tdap/Td Vaccines [...] 09/05/2022, 0 06/16/2021, 06/21/2019, Additional history exists Mammogram 2024 COVID-19 Vaccine ( - season) 2025 11/17/2020, 10/20/2020 Influenza Vaccine (#1) 2025 07/15/2020 Zoster Vaccines (1 of 2) 2034 RSV [...] Years) and At-Risk Patients (6 to 49) Years Aged Out No longer eligible based on [...]
--- OUTSIDE RECORDS SUMMARY | 2025-10-10 09:17 | XMS_ITS | Encounter Summary ---
Author Organization [facility] Address [address] [facility] [address] [place] [address] Care Team Providers Care Manager Process Excellence Name Role Phone Unavailable Primary Care Provider Unavailabl e Encounter Details Date Type Department Care Team (Late st Contact Info) Description 08/10/2023 Abstract [facility] [address] [phone] PcpSg Unassigned Social History Tobacco Use Types [...]
--- OUTSIDE RECORDS SUMMARY | 2025-10-10 09:17 | XMS_ITS ---
Author Name [facility] [[email or web address]]P Organization Unknown Care Team Organization Name Specialty Phone Email Start Date End Da te [facility] Primary [facility] 08/30/2022 06/10/2024
--- OUTSIDE RECORDS SUMMARY | 2025-10-10 09:17 | XMS_ITS | Encounter Summary ---
Author Organization [email or web address] Address [address] [facility] [address] [place] [address] Care Team Providers Care Appliance Servicer Name Role Phone Unavailable Primary Care Provider Unavailabl e Encounter Details Date Type Department Care Team (Latest Contact Info) Description 06/21/2019 Abstract [facility] CONVERSIONS Dental, Provider, DDS Social History Tobacco [...]
[2025-10-10 09:36] LABS: Hematocrit 37.5 % (37.0-47.0); Hemoglobin 12.5 g/dl (12.0-16.0); Imm Gran Abs Auto 0.02 X10*3/uL (0.00-0.03); Imm Gran Pct Auto 0.3 % (0.0-0.4); Lymphocytes Absolute Auto 1.8 X10*3/uL (1.2-4.9); Mean Corpuscular HGB Conc 33.3 g/dl (31.0-35.0); Mean Corpuscular Hemoglobin 26.8 pg (27.0-33.0); Mean Corpuscular Volume 80.3 fL (80.0-98.0); NRBC Abs Auto 0.000 X10*3/uL (0.0-0.012); NRBC Pct Auto 0.0 /100WBC (0.0-0.2); Platelet Count 326 X10*3/uL (160-400); Red Blood Count 4.67 X10*6/uL (4.20-5.50); White Blood Count 7.0 X10*3/uL (4.8-10.8)
[2025-10-10 10:18] LABS: Alanine Aminotransferase 44 U/L (0-31); Albumin Level 4.9 g/dL (3.5-5.0); Alkaline Phosphatase 62 U/L (39-117); Anion Gap 12 (12-20); Aspartate Amino Transferase 28 U/L (5-31); Blood Urea Nitrogen 12 mg/dL (9-16); Calcium 9.9 mg/dL (8.4-10.2); Carbon Dioxide 24 mmol/L (22-29); Chloride 107 mmol/L (96-108); Cholesterol 163 mg/dL (<200); Estimated Glomerular Filt Rate > 60; HDL Cholesterol 37 mg/dL (>40); Potassium 4.2 mmol/L (3.3-5.1); Sodium 139 mmol/L (135-145); Total Protein 8.0 g/dL (6.5-8.0); Triglycerides 82 mg/dL (<150)
[2025-10-10 10:28] LABS: Free T4 (Free Thyroxine) 1.01 ng/dL (0.71-1.85); Thyroid Stimulating Hormone 1.51 uIU/mL (0.32-4.0)
[2025-10-10 10:38] LABS: Folate 5.4 ng/mL (> or = 4.0); Vitamin B12 465 pg/mL (200-900)
== END 2025-10-10 08:56 | disposition home or self-care (01) ==
LOC: HO.LAB 08:55
PROVIDERS: PCP Internal Medicine; Visit Provider Internal Medicine
DX: Z13.1 Encounter for screening for diabetes mellitus (principal); E78.00 Pure hypercholesterolemia, unspecified; K76.0 Fatty (change of) liver, not elsewhere classified
CPT/HCPCS: 36415; 80053; 80061; 82306; 82607; 82746; 83036; 84439; 84443; 85025

== ENCOUNTER 2025-10-20 14:47 | Outpatient (AMB) | payer BC, SELFPAY ==
--- NOTE | 2025-10-20 15:16 | MHC.PC.OV ---
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: No Accompanied by: Self / Same As Patient Allergies No Known Drug Allergies Allergy (Unknown, Verified 10/20/25 15:31) NONE Medication List - Last Reconciled 10/20/25 by Alicia Barbosa PA-C biotin (Hair, Skin and Nails (biotin)) mcg PO omeprazole 20 mg PO DAILY valacyclovir (Valtrex) 500 mg PO BID zolpidem 10 mg PO BEDTIME PRN Tobacco use date assessed: 03/28/25 Dental Screening Dental Screen Date: 03/28/25 HPI discuss stomach concerns HPI Details 40 year old female with past medical history of constipation, impaired glucose tolerance, fatty liver, GERD, last seen 03/2025 coming in for acute problem. Presenting with rectal pressure and changes in bowel habits. She reports feeling internal pressure in her rectal area and discomfort with defecation, but denies any significant pain or bleeding. She has a history of a hemorrhoid which prompted a previous call. Her bowel habits are irregular, fluctuating between not having a bowel movement for two days and then having three to four movements in one day. She notes that her stool consistency changes, sometimes being hard, sometimes very thin, and she experiences a sensation of incomplete evacuation. The patient also reports chronic stomach pains and cramps since her gallbladder was removed. She experiences frequent nausea, which can occur with or without stomach pain, but denies vomiting. A previous referral to a GI specialist was made, but the appointment is not until February of next year. [facility] Medical History LFT elevation Inflammation of sacroiliac joint Bronchitis Sinus infection Cough Mass of skin of back History of abnormal cervical Pap smear Surgical History History of thyroid surgery History of cholecystectomy Hx of tubal ligation H/O abdominoplasty Hx of section Family History Father TIA (transient ischemic attack) Bipolar 1 disorder Mental health disorder Multiple sclerosis Maternal Grandfather Heart attack Son Asperger's disorder Mother Heart attack Social History Housing: Apartment Alcohol intake: current Alcohol intake frequency: holidays/special occasions only Alcohol type: wine Comment: glass of wine QD=twice A year 1 glass Patient Tobacco Use Status: Never used Tobacco Tobacco use type: Cigarette e-Cigarette/Vaping Use: Never Used Second Hand Smoke Exposure: No service: No Current occupational status: employed Current occupation: [employer] Sexual orientation: Straight/Heterosexual Gender identity: Female Cognitive needs: No Hearing needs: No Vision needs: Yes Female Reproductive History Menstrual Age of Menarche: 10 Questionnaire Thrive Questionnaire Date Thrive assessed: 03/28/25 I am a: Patient What is your living situation today?: I have a steady place to live Within the past 12 months, did the food you bought not last and you didn't have the money to get more?: Never true Within the past 12 months, did you worry whether your food would run out before you got money to buy more?: Never true Do you have trouble paying for medicines?: Yes Do you have trouble getting transportation to medical appointments?: No Do you have trouble paying your heating and electricity bill?: No Do you have trouble taking care of your child, family member or friend?: No Do you have trouble with day-to-day activities such as bathing, preparing meals, shopping, managing finances, etc.?: No Are you currently unemployed and looking for a job?: No Are you interested in more education?: No Currently or been in a relationship where the following occur: No concerns reported THRIVE Score: 0 CHELSYE-7 AMB Questionnaire CHELSEY-7 Date CHELSEY - 7 assessed: 03/28/25 Source: Developed by Drs. Souleymane Rodrigues, Aiyana Sabillon, Jerry Reza and colleagues, with an educational omega from [employer]. Review of Systems Const Denies body aches, Denies chills, Denies fatigue and Denies fever(s) ENT Reports no additional complaints Card Denies chest pain, Denies irregular heart rhythm, Denies lightheadedness and Denies dyspnea Resp Denies dyspnea GI Reports abdominal pain, Denies melena, Denies bloating, Reports change in stool character, Denies constipation, Denies excessive flatus, Reports heartburn, Reports diarrhea, Reports loose stools, Reports nausea and Denies vomiting Reports no additional complaints Skin/Breast Reports system reviewed and no additional complaints, except as documented Endo Denies fatigue Physical exam (Primary Care) Vital Signs: Last Vital Signs Pulse 94 10/20/25 15:18 BP 134/78 10/20/25 15:18 Pulse Ox 98 10/20/25 15:18 Oxygen Delivery Method Room Air 10/20/25 15:18 BMI result Body Mass Index 27.8 Tobacco/Smoking Status: Tobacco use Status Tobacco use date assessed 03/28/25 10/20/25 15:21 Patient Tobacco Use Status Never used Tobacco 10/20/25 15:21 Tobacco use type Cigarette 10/20/25 15:28 e-Cigarette/Vaping Use Never Used 10/20/25 15:21 Thrive Assessment: Date of Thrive Assessment Date Thrive assessed 03/28/25 10/20/25 15:21 Currently or been in a relationship where the following occur: No concerns reported Const General: cooperative, healthy appearing, comfortable and no acute distress Orientation/consciousness: patient oriented x3 HENMT Head: Yes normocephalic Ears: hearing grossly normal bilaterally General nose exam: Normal external nose present Eyes General: appearance normal, both eyes and all related structures Conjunctivae: conjunctivae normal Neck Neck: Yes full ROM and Yes no lymphadenopathy Resp Effort & Inspection: normal respiratory effort Auscultation: clear to auscultation bilaterally, no crackles, no rales, no rhonchi and no wheezes Cardio Rate: regular rate Rhythm: regular rhythm GI Palpation (GI): not soft, not firm, Tenderness to palpation present (GI) in the epigastrum; not in the LLQ, not in the RLQ, not in the LUQ and not in the RUQ, no guarding, not rigid and No Rebound tenderness present Rectal Exam - Female: deferred Back/Spine/Pelvis Other: TTP of lumbar spine and sacrum Skin General skin exam: no rashes or lesions noted Neuro General: patient oriented x3 Gait exam (Neuro): Normal gait present Extrem General: Yes normal to inspection, Yes full ROM and No edema Psych Affect: normal affect Attitude: cooperative Insight: Good insight present (Psych) Judgement: Good judgement present (Psych) Coding Level of Care Code Est Pt Level 3 (78852) Diagnoses Change in stool caliber R19.5 Constipation K59.00 Rectal pressure R19.8 Lower back pain M54.50 GERD (gastroesophageal reflux disease) K21.9 Assessment & Plan Assessment & Plan (1) Change in stool caliber: Code(s): R19.5 - Other fecal abnormalities Category: Medical Plan: The patient's report of thin stools is concerning for a potential obstruction, and the cause is unclear, possibly related to constipation, diet, or post-cholecystectomy changes. An urgent referral will be made to a GI specialist for further evaluation, which will likely include a colonoscopy. She will be started on a daily fiber supplement to help regulate her bowels, and she has been provided with dietary information regarding foods that may cause stomach irritation. (2) Constipation: Code(s): K59.00 - Constipation, unspecified Category: Medical Plan: See above (3) Rectal pressure: Code(s): R19.8 - Other specified symptoms and signs involving the digestive system and abdomen Category: Medical Plan: See above (4) Lower back pain: Code(s): M54.50 - Low back pain, unspecified Category: Medical Plan: The patient complains of back pain and pressure, with a known history of arthritis in her back. A back X-ray will be ordered to evaluate her current symptoms. (5) GERD (gastroesophageal reflux disease): Code(s): K21.9 - Gastro-esophageal reflux disease without esophagitis Category: Medical Plan: The patient's nausea and epigastric discomfort are likely attributable to acid reflux. She will continue to use Tums as needed for her symptoms, and was advised to drink plenty of water with them. The patient declined a daily medication for reflux at this time but was instructed to follow up if she wishes to start one in the future. Orders: Orders XR lumbar spine 2-3V Today M54.50 - Low back pain, unspecified Referrals Gastroenterology Referral K59.00 - Constipation, unspecified, R19.5 - Other fecal abnormalities, R19.8 - Other specified symptoms and signs involving the digestive system and abdomen Medications: New psyllium husk (Metamucil) 0.4 grams PO BEDTIME PRN 90 caps 0RF constipation Discontinued omeprazole Discontinued Reason: Patient no longer taking 20 mg PO DAILY 30 caps 0RF K21.9 - Gastro-esophageal reflux disease without esophagitis
[2025-10-20 15:18] VITALS: BP 134/78; PULSE 94; O2SAT 98; BMI 27.8
--- OUTSIDE RECORDS SUMMARY | 2025-10-20 17:09 | XMS_ITS | Encounter Summary ---
Author Organization [employer] Address [address] [facility] [address] [place] [address] Care Team Providers Care Butcher Chicken And Fish Name Role Phone Unavailable Primary Care Provider Unavailabl e Encounter Details Date Type Department Care Team (Latest Contact Info) Description 06/21/2019 Abstract [facility] CONVERSIONS Dental, Provider, DDS Social History Tobacco [...]
--- OUTSIDE RECORDS SUMMARY | 2025-10-20 17:09 | XMS_ITS | Encounter Summary ---
Author Organization [employer] Address [address] [facility] [address] [place] [address] Care Team Providers Care Raw Cheese Worker Name Role Phone Unavailable Primary Care Provider Unavailabl e Encounter Details Date Type Department Care Team (Latest Contact Info) Description 09/05/2022 Abstract [facility] CONVERSIONS Dental, Provider, DDS Social History [...]
--- OUTSIDE RECORDS SUMMARY | 2025-10-20 17:09 | XMS_ITS | Clinical Summary ---
Author Organization [facility] [employer] [facility] Prior to 03/22/[address] [place] [address] Care Team Providers Care Charrer Name Role Phone Maikol Casanova MD Primary Care Provider [phone] Allergies No known active allergies Medications No [...] age to complete this topic Care Teams Charrer Relationship Specialty Start Date End Date Maikol Casanova MD PCP - General Internal Medicine 01/10/19
--- OUTSIDE RECORDS SUMMARY | 2025-10-20 17:09 | XMS_ITS | Encounter Summary ---
Author Organization [employer] Address [address] [facility] [address] [place] [address] Care Team Providers Care Supply Chain Program Manager Name Role Phone Unavailable Primary Care Provider Unavailabl e Encounter Details Date Type Department Care Team (Late st Contact Info) Description 08/10/2023 Abstract [facility] [address] [id number] PcpSg Unassigned Social History Tobacco Use Types [...]
--- OUTSIDE RECORDS SUMMARY | 2025-10-20 17:09 | XMS_ITS | Clinical Summary ---
Author Organization [employer] Address [address] [place] [address] [address] [place] [address] Care Team Providers Care Senior Storage Engineer Name Role Phone Unavailable Primary Care Provider [...]
--- OUTSIDE RECORDS SUMMARY | 2025-10-20 17:09 | XMS_ITS | Encounter Summary ---
Author Organization [employer] Address [address] [facility] [address]t [place] [address] Care Team Providers Care Proteomics Scientist Name Role Phone Unavailable Primary Care Provider Unavailabl e Encounter Details Date Type Department Care Team (Latest Contact Info) Description 06/16/2021 Abstract [facility] CONVERSIONS Dental, Provider, DDS Social History [...]
--- OUTSIDE RECORDS SUMMARY | 2025-10-20 17:09 | XMS_ITS | Clinical Summary ---
Author Organization [address] [place] [address] Address [address] [place] [address] Phone Care Team Providers Care International Representative Name Role Phone Ravinder Murillo MD Primary Care Provider [phone] Allergies No known active allergies Medications ibuprofen [...] Upcoming Encounters Date Type Department Care Team ([facility] st Contact Info) Description 11/10/2025 9:40 AM EST Consult Gastroenterology - [address] [id number] Cheyanne Mcintosh, DENNIS [address] [address] Health Maintenance Due Date Last Done Comments [...] Smear (12/29/2021) Pap smear Abstracted, no interpretation [facility] Provider MD HEALTH MAINTENANCE Final Result from Last 3 Months or Most Recently Relevant to Health Maintenance Insurance [facility] Care Teams International Representative Relationship Specialty Start Date End Date Ravinder Murillo MD [address] [place] [address] [address] [facility] [place] [address] PCP - General Internal Medicine 06/18/25
== END 2025-10-20 16:15 | disposition home or self-care (01) ==
LOC: HO.HMCH 14:48
PROVIDERS: PCP Internal Medicine
DX: R19.5 Other fecal abnormalities (principal); K59.00 Constipation, unspecified; R19.8 Other specified symptoms and signs involving the digestive system and abdomen; M54.50 Low back pain, unspecified; K21.9 Gastro-esophageal reflux disease without esophagitis